=== PATIENT | female | born 1970 | race Caucasian/White ===

== ENCOUNTER 2019-02-11 05:28 | Emergency (ER) | payer OTHER, SELFPAY ==
[2019-02-11] MEDS ORDERED: METOCLOPRAMIDE 10 MG/2mL INJ ONE (06:01)
[2019-02-11] MEDS ORDERED: DIPHENHYDRAMINE 50 MG/ML VIAL ONE (06:02)
[2019-02-11] MEDS ORDERED: NA CHLORIDE 0.9% 1,000 ML ONE (06:02)
[2019-02-11] MEDS ORDERED: KETOROLAC 30 MG/ML INJ ONE (06:02)
[2019-02-11 06:08] LABS: Absolute Lymphocytes (CBC) 2.4 K/uL (0.7-4.9); Eosinophils % 2.6 % (0-4.4); Hematocrit 42.2 % (36.0-45.0); Lymphocytes % 25.8 % (15.3-44.8); Monocytes % 6.7 % (3.3-12.3); RBC Red Blood Cell Count 4.64 M/uL (3.86-4.86)
[2019-02-11] MEDS ORDERED: MAGNESIUM SULFATE 1 gm IVPB 1 GM/100 ML BAG IV ONE (06:17)
[2019-02-11 06:31] LABS: Albumin 4.5 g/dL (3.4-5.0); Bilirubin Total 0.3 mg/dL (0.2-1.0); Potassium 3.6 mmol/L (3.5-5.1)
--- NOTE | 2019-02-11 06:52 | EDPHYS ---
Physician Documentation [facility] Name: Tanna Phelps Age: 48 yrs Sex: Female : 1970 Arrival Date: 02/11/2019 Time: 05:29 Bed 5 Private MD: ED Physician Satish Jimenes HPI: 02/11 05:41 This 48 yrs old Female presents to ER via Unassigned with complaints of maldonado Headache. 05:41 The patient complains of pain to the top of head, forehead, left frontal area, left maldonado side of the back of head, left occipital area, left base of the skull, right frontal area, right side of the back of head, right occipital area and right base of the skull. The patient describes the headache as aching. Onset: The symptoms/episode began/occurred 14 day(s) ago. Associated signs and symptoms: The patient has no apparent associated signs or symptoms. Severity of symptoms: At its worst the pain was mild, moderate, in the emergency department the pain is unchanged. Headache History: The patient has had previous headaches and this one is similar to previous episodes. The symptoms are alleviated by nothing. the symptoms are aggravated by lights, movement, noise. The patient has experienced similar episodes in the past, multiple times. STRIKE PLANNING APPLICATIONS: 05:43 LMP N/A - Hysterectomy lp1 Historical: - Allergies: 05:46 Latex, Natural Rubber; lp1 05:46 Topamax; lp1 - Home Meds: 05:46 propranolol 40 mg Oral tab 1 tab 2 times per day [Active]; Hydrochlorothiazide Oral lp1 once daily [Active]; Butalbital Compound Oral [Active]; - PMHx: 05:46 Asthma; High Cholesterol; Hypertension; Migraines; lp1 - PSHx: 05:46 Kidney stents; ; Tubal ligation; Hysterectomy; Appendectomy; carpel tunnel; lp1 arterial graft; Knee surgery; - Immunization history:: Adult Immunizations up to date. - Social history:: Smoking status: Patient uses tobacco products, smokes one pack cigarettes per day. - Ebola Screening: : No symptoms or risks identified at this time. - Family history:: not pertinent. ROS: 05:41 Constitutional: Negative for fever, chills, and weight loss, Eyes: Negative for injury, maldonado pain, redness, and discharge, ENT: Negative for injury, pain, and discharge, Neck: Negative for injury, pain, and swelling, Cardiovascular: Negative for chest pain, palpitations, and edema, Respiratory: Negative for shortness of breath, cough, wheezing, and pleuritic chest pain, Abdomen/GI: Negative for abdominal pain, nausea, vomiting, diarrhea, and constipation, Back: Negative for injury and pain, : Negative for injury, bleeding, discharge, and swelling, MS/Extremity: Negative for injury and deformity, Skin: Negative for injury, rash, and discoloration, Psych: Negative for depression, anxiety, suicide ideation, homicidal ideation, and hallucinations, Allergy/Immunology: Negative for hives, rash, and allergies, Endocrine: Negative for neck swelling, polydipsia, polyuria, polyphagia, and marked weight changes, Hematologic/Lymphatic: Negative for swollen nodes, abnormal bleeding, and unusual bruising. 05:41 Neuro: Positive for headache. Exam: 05:41 Constitutional: This is a well developed, well nourished patient who is awake, alert, maldonado and in no acute distress. Head/Face: Normocephalic, atraumatic. Eyes: Pupils equal round and reactive to light, extra-ocular motions intact. Lids and lashes normal. Conjunctiva and sclera are non-icteric and not injected. Cornea within normal limits. Periorbital areas with no swelling, redness, or edema. ENT: Nares patent. No nasal discharge, no septal abnormalities noted. Tympanic membranes are normal and external auditory canals are clear. Oropharynx with no redness, swelling, or masses, exudates, or evidence of obstruction, uvula midline. Mucous membranes moist. Neck: Trachea midline, no thyromegaly or masses palpated, and no cervical lymphadenopathy. Supple, full range of motion without nuchal rigidity, or vertebral point tenderness. No Meningismus. Chest/axilla: Normal chest wall appearance and motion. Nontender with no deformity. No lesions are appreciated. Cardiovascular: Regular rate and rhythm with a normal S1 and S2. No gallops, murmurs, or rubs. Normal PMI, no JVD. No pulse deficits. Respiratory: Lungs have equal breath sounds bilaterally, clear to auscultation and percussion. No rales, rhonchi or wheezes noted. No increased work of breathing, no retractions or nasal flaring. Abdomen/GI: Soft, non-tender, with normal bowel sounds. No distension or tympany. No guarding or rebound. No evidence of tenderness throughout. Back: No spinal tenderness. No costovertebral tenderness. Full range of motion. Skin: Warm, dry with normal turgor. Normal color with no rashes, no lesions, and no evidence of cellulitis. MS/ Extremity: Pulses equal, no cyanosis. Neurovascular intact. Full, normal range of motion. Neuro: Awake and alert, GCS 15, oriented to person, place, time, and situation. Cranial nerves II-XII grossly intact. Motor strength 5/5 in all extremities. Sensory grossly intact. Cerebellar exam normal. Normal gait. Psych: Awake, alert, with orientation to person, place and time. Behavior, mood, and affect are within normal limits. 05:41 Neck: ROM/movement: is normal, no acute changes, Meningeal signs: are not present, Kernig's sign is negative, Brudzinski's sign is negative. Vital Signs: 05:43 BP 187 / 100; Pulse 84; Resp 18; Temp 97.9(O); Pulse Ox 97% on R/A; Weight 77.11 kg; lp1 Height 5 ft. 1 in. (154.94 cm); Pain 6/10; 06:17 BP 178 / 87; Pulse 83; Resp 17 S; Pulse Ox 97% on R/A; jd3 06:30 BP 173 / 95; Pulse 71; Resp 16 S; Pulse Ox 95% on R/A; Pain 3/10; jd3 05:43 Body Mass Index 32.12 (77.11 kg, 154.94 cm) lp1 MDM: 05:32 Patient medically screened. [facility] 05:49 Data reviewed: vital signs, nurses notes, lab test result(s), radiologic studies, CT maldonado scan. 02/11 05:39 Order name: CBC with Diff; Complete Time: 06:48 [facility] 02/11 05:39 Order name: Comprehensive Metabolic Panel; Complete Time: 06:48 [facility] 02/11 05:39 Order name: Urine Culture [facility] 02/11 05:40 Order name: CT Head Brain wo Cont [facility] 02/11 07:23 Order name: Urine Dipstick--Ancillary (enter results) 02/11 05:39 Order name: Urine Dipstick-Ancillary (obtain specimen); Complete Time: 07:20 [facility] 02/11 05:39 Order name: Oxygen; Complete Time: 06:10 [facility] 02/11 06:11 Order name: IV; Complete Time: 06:11 jd3 Administered Medications: 06:11 Drug: NS 0.9% 1000 ml Route: IV; Rate: 1 bolus; Site: right antecubital; jd3 07:22 Follow up: Response: No adverse reaction; IV Status: Completed infusion; IV Intake: jd3 1000ml 06:11 Drug: TORadol 30 mg Route: IVP; Site: right antecubital; jd3 07:10 Follow up: Response: No adverse reaction jd3 06:11 Drug: Benadryl 50 mg Route: IVP; Site: right antecubital; jd3 07:10 Follow up: Response: No adverse reaction jd3 06:12 Drug: Reglan 10 mg Route: IVP; Site: right antecubital; jd3 07:05 Follow up: Response: No adverse reaction jd3 06:12 Drug: Magnesium Sulfate 1 grams Route: IVPB; Infused Over: 1 hrs; Site: right jd3 antecubital; 07:21 Follow up: Response: No adverse reaction; IV Status: Completed infusion; IV Intake: jd3 100ml 07:18 Drug: Zofran 4 mg Route: IVP; Site: right antecubital; jd3 07:21 Follow up: Response: Medication administered at discharge. jd3 07:18 Drug: morphine 4 mg Route: IVP; Site: right antecubital; jd3 07:21 Follow up: Response: Medication administered at discharge. jd3 Disposition: 02/11/19 06:51 Discharged to Home. Impression: Headache, Migraine. - Condition is Stable. - Discharge Instructions: General Headache Without Cause, Migraine Headache, Migraine Headache, [id number], General Headache Without Cause, Gqjp-ly-[id number]. - Prescriptions for Fioricet with Codeine 50- 325-40-30 mg Oral capsule - take 1 capsule by ORAL route every 4 hours as needed not to exceed 6 capsules per 24hrs; 26 capsule. Zofran 4 mg Oral Tablet - take 1 tablet by ORAL route every 12 hours As needed; 20 tablet. - Medication Reconciliation Form, Thank You Letter, Antibiotic Education, Prescription Opioid Use form. - Follow up: Private Physician; When: 2 - 3 days; Reason: Recheck today's complaints, Continuance of care, Re-evaluation by your physician. Follow up: Caleb Velarde; When: 2 - 3 days; Reason: Recheck today's complaints, Re-evaluation by your physician. - Problem is new. - Symptoms have improved. Signatures: Dispatcher [employer] EDSatish Vera MD MD cha Pena, Laura RN RN lp1 Denilson Shearer RN RN jd3 Corrections: (The following items were deleted from the chart) 07:24 06:51 02/11/2019 06:51 Discharged to Home. Impression: Headache; Migraine. Condition is jd3 Stable. Discharge Instructions: General Headache Without Cause, Migraine Headache, Migraine Headache, [id number]-[id number], General Headache Without Cause, Vbwp-[id number]-Hwag. Prescriptions for Fioricet with Codeine 57-509-64-30 mg Oral capsule - take 1 capsule by ORAL route every 4 hours as needed not to exceed 6 capsules per 24hrs; 26 capsule, Zofran 4 mg Oral Tablet - take 1 tablet by ORAL route every 12 hours As needed; 20 tablet. and Forms are Medication Reconciliation Form, Thank You Letter, Antibiotic Education, Prescription Opioid Use. Follow up: Private Physician; When: 2 - 3 days; Reason: Recheck today's complaints, Continuance of care, Re-evaluation by your physician. Follow up: Caleb Velarde; When: 2 - 3 days; Reason: Recheck today's complaints, Re-evaluation by your physician. Problem is new. Symptoms have improved. maldonado
--- NOTE | 2019-02-11 06:52 | ER ---
Nurse's Notes [facility] Name: Tanna Phelps Age: 48 yrs Sex: Female : 1970 Arrival Date: 02/11/2019 Time: 05:29 Bed 5 Private MD: Diagnosis: Headache;Migraine Presentation: 02/11 05:42 Presenting complaint: Patient states: "I've had a headache for 3 weeks that I cannot lp1 get rid of"; Patient states waking up this morning vomiting; noise and light sensitivity; Hx of migraines, complaint of pain to back of head radiating to forehead. Transition of care: patient was not received from another setting of care. Onset of symptoms was February 11, 2019. Risk Assessment: Do you want to hurt yourself or someone else? Patient reports no desire to harm self or others. Initial Sepsis Screen: Does the patient meet any 2 criteria? No. Patient's initial sepsis screen is negative. Does the patient have a suspected source of infection? No. Patient's initial sepsis screen is negative. Care prior to arrival: None. 05:42 Method Of Arrival: Ambulatory lp1 05:42 Acuity: JOE 3 lp1 Triage Assessment: 06:15 Pain: Pain at worst was 10 out of 10 on a pain scale. Pain began 2-3 days ago. Also jd3 complains of nausea. 06:16 Headache History: The patient has had previous headaches and this one is similar to jd3 previous episodes. 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 - Social history:: Smoking status: Patient uses tobacco products, smokes one pack cigarettes per day. - Ebola Screening: : No symptoms or risks identified at this time. - Family history:: not pertinent. Screenin:46 Abuse screen: Denies threats or abuse. Denies injuries from another. Nutritional lp1 screening: No deficits noted. Tuberculosis screening: No symptoms or risk factors identified. Fall Risk None identified. Assessment: 05:50 General: Appears in no apparent distress. uncomfortable, Behavior is calm, cooperative, jd3 appropriate for age. Pain: Complains of pain in head Quality of pain is described as aching, Aggravated by increased activity. Neuro: Level of Consciousness is awake, alert, obeys commands, Oriented to person, place, time, situation, Appropriate for age Moves all extremities. Full function Gait is steady, Speech is normal, Pupils are PERRLA, Reports headache photophobia Denies dizziness, numbness diplopia. Cardiovascular: Capillary refill < 3 seconds Patient's skin is warm and dry. Respiratory: Airway is patent Respiratory effort is even, unlabored, Respiratory pattern is regular, symmetrical. GI: Abdomen is round non-distended, Abd is soft and non tender X 4 quads. Reports nausea, Patient currently denies constipation, diarrhea, vomiting. : No signs and/or symptoms were reported regarding the genitourinary system. EENT: No signs and/or symptoms were reported regarding the EENT system. Derm: Skin is intact, Skin is dry, Skin is normal, Skin temperature is warm. Musculoskeletal: Circulation, motion, and sensation intact. Range of motion: intact in all extremities. 06:16 Reassessment: Patient appears in no apparent distress at this time. No changes from jd3 previously documented assessment. Patient and/or family updated on plan of care and expected duration. Pain level reassessed. Patient is alert, oriented x 3, equal unlabored respirations, skin warm/dry/pink. 06:40 Reassessment: Patient appears in no apparent distress at this time. Patient and/or jd3 family updated on plan of care and expected duration. Pain level reassessed. Patient is alert, oriented x 3, equal unlabored respirations, skin warm/dry/pink. pt resting in bed with eyes closed. even and unlabored respirations. Patient states feeling better. 07:23 Reassessment: Patient appears in no apparent distress at this time. Patient and/or jd3 family updated on plan of care and expected duration. Pain level reassessed. Patient is alert, oriented x 3, equal unlabored respirations, skin warm/dry/pink. reported understanding of discharge instructions. even and steady gait to ER lobby to wait for ride. Patient states feeling better. Vital Signs: 05:43 BP 187 / 100; Pulse 84; Resp 18; Temp 97.9(O); Pulse Ox 97% on R/A; Weight 77.11 kg; lp1 Height 5 ft. 1 in. (154.94 cm); Pain 6/10; 06:17 BP 178 / 87; Pulse 83; Resp 17 S; Pulse Ox 97% on R/A; jd3 06:30 BP 173 / 95; Pulse 71; Resp 16 S; Pulse Ox 95% on R/A; Pain 3/10; jd3 05:43 Body Mass Index 32.12 (77.11 kg, 154.94 cm) lp1 ED Course: 05:29 Patient arrived in ED. ds1 05:32 Satish Jimenes MD is Attending Physician. maldonado 05:41 Denilson Shearer RN is Primary Nurse. jd3 05:43 Triage completed. lp1 05:43 Arm band placed on. lp1 05:[address] via wheelchair. lp1 05:46 Patient has correct armband on for positive identification. Placed in gown. lp1 05:58 Inserted saline lock: 20 gauge in right antecubital area, using aseptic technique. jd3 Blood collected. 06:03 CT Head Brain wo Cont In Process Unspecified. EDMS 06:51 Caleb Velarde MD is Referral Physician. maldonado 07:22 No provider procedures requiring assistance completed. IV discontinued, intact, jd3 bleeding controlled, No redness/swelling at site. Pressure dressing applied. Administered Medications: 06:11 Drug: NS 0.9% 1000 ml Route: IV; Rate: 1 bolus; Site: right antecubital; jd3 07:22 Follow up: Response: No adverse reaction; IV Status: Completed infusion; IV Intake: jd3 1000ml 06:11 Drug: TORadol 30 mg Route: IVP; Site: right antecubital; jd3 07:10 Follow up: Response: No adverse reaction jd3 06:11 Drug: Benadryl 50 mg Route: IVP; Site: right antecubital; jd3 07:10 Follow up: Response: No adverse reaction jd3 06:12 Drug: Reglan 10 mg Route: IVP; Site: right antecubital; jd3 07:05 Follow up: Response: No adverse reaction jd3 06:12 Drug: Magnesium Sulfate 1 grams Route: IVPB; Infused Over: 1 hrs; Site: right jd3 antecubital; 07:21 Follow up: Response: No adverse reaction; IV Status: Completed infusion; IV Intake: jd3 100ml 07:18 Drug: Zofran 4 mg Route: IVP; Site: right antecubital; jd3 07:21 Follow up: Response: Medication administered at discharge. jd3 07:18 Drug: morphine 4 mg Route: IVP; Site: right antecubital; jd3 07:21 Follow up: Response: Medication administered at discharge. jd3 Intake: 07:21 IV: 100ml; Total: 100ml. jd3 07:22 IV: 1000ml; Total: 1100ml. jd3 Outcome: 06:51 Discharge ordered by MD. okeefe 07:23 Discharged to home ambulatory, with family. jd3 07:23 Condition: stable 07:23 Discharge instructions given to patient, Instructed on discharge instructions, follow up and referral plans. medication usage, Demonstrated understanding of instructions, follow-up care, medications, Prescriptions given X 2. 07:24 Patient left the ED. jd3 Signatures: Dispatcher [employer] Satish Hinkle MD MD cha Sanford, Demi ds1 Vickie Gaines RN RN lp1 Denilson Shearer RN RN jd3
[2019-02-11] MEDS ORDERED: MORPHINE 4 MG/ML SYR ONE (07:27)
[2019-02-11] MEDS ORDERED: ONDANSETRON 4 MG/2 ML VIAL ONE (07:27)
[2019-02-11 09:25] LABS: Urine Blood NEGATIVE (NEG); Urine Glucose NEGATIVE (NEG); Urine Protein NEGATIVE (NEG); Urine Specific Gravity 1.025 (1.005-1.030)
--- NOTE | 2019-02-11 10:02 | RAD REPORT ---
EXAM DESCRIPTION: CT - Head Brain Wo Cont - 02/11/2019 6:20 am CLINICAL HISTORY: PAIN COMPARISON: None available TECHNIQUE: Axial CT of the head obtained from the skull apex to the skull base without contrast. FINDINGS: No acute intracranial hemorrhage identified. No mass, mass effect, shift of the midline, a bnormal extra-axial fluid collection or CT evidence of acute ischemic change identified. The ventricu lar system is unremarkable. No acute abnormalities of the supratentorial white matter, basal gangli a, cerebellum, or brainstem. The visualized paranasal sinuses and the mastoids are clear. No skull fracture identified. Visualized orbits and globes are unremarkable. DLP: 27.6 mGy-cm IMPRESSION: 1. No acute intracranial abnormality identified. This exam was performed according to our departmental dose-optimization program, which includes autom ated exposure control, adjustment of the mA and/or kV according to patient size and/or use of iterati ve reconstruction technique. Electronically signed by: Yuriy Barcenas 02/11/2019 6:14 AM CDT Due to temporary technical issues with the PACS/Fluency reporting system, reports are being signed by the in house radiologist as a courtesy to ensure prompt reporting. The interpreting radiologist is f ully responsible for the content of the report.
== END 2019-02-11 07:24 | disposition home or self-care (01) ==
LOC: ER 05:28
DX: G43.909 Migraine, unspecified, not intractable, without status migrainosus (principal); J45.909 Unspecified asthma, uncomplicated; E78.00 Pure hypercholesterolemia, unspecified; I10 Essential (primary) hypertension; F17.210 Nicotine dependence, cigarettes, uncomplicated; Z91.040 Latex allergy status
CPT/HCPCS: 36415; 70450; 80053; 81003; 85025; 87086; 87088; 96365; 96375; 99284; J2405; J2765; J3475; J7030

== ENCOUNTER 2019-02-18 19:11 | Emergency (ER) | payer BC, SELFPAY ==
[2019-02-18 20:26] LABS: Absolute Lymphocytes (CBC) 1.3 K/uL (0.7-4.9); Basophils % 0.6 % (0-1.3); Eosinophils % 0.6 % (0-4.4); Hematocrit 42.1 % (36.0-45.0); Lymphocytes % 9.9 % (15.3-44.8); MPV 8.6 fL (7.6-11.3); Monocytes % 5.1 % (3.3-12.3); RBC Red Blood Cell Count 4.59 M/uL (3.86-4.86)
[2019-02-18 20:33] LABS: Protime INR 0.95
[2019-02-18] MEDS ORDERED: ONDANSETRON 4 MG/2 ML VIAL ONE ×2 (20:35→21:44)
[2019-02-18] MEDS ORDERED: MORPHINE 4 MG/ML SYR ONE ×2 (20:35→21:44)
[2019-02-18] MEDS ORDERED: NA CHLORIDE 0.9% 1,000 ML ONE (20:35)
[2019-02-18] MEDS ORDERED: FAMOTIDINE 20 MG/2 ML VIAL IV ONE (20:35)
[2019-02-18 20:46] LABS: ALT/SGPT 20 U/L (12-78); AST/SGOT 14 U/L (15-37); Albumin 4.5 g/dL (3.4-5.0); Alkaline Phosphatase 123 U/L (45-117); BUN Blood Urea Nitrogen 16 mg/dL (7-18); Bicarbonate 27 mmol/L (21-32); Bilirubin Direct < 0.1 mg/dL (0-0.2); Bilirubin Total 0.3 mg/dL (0.2-1.0); Glucose Level 126 mg/dL (74-106); Lipase 112 U/L (73-393); Magnesium 2.2 mg/dL (1.8-2.4); NT PRO-BNP 59 pg/mL (<125); Potassium 3.6 mmol/L (3.5-5.1); Protein, Total 8.1 g/dL (6.4-8.2); Sodium Level 141 mmol/L (136-145); Troponin (Emerg Dept Use Only) 0.21 ng/mL (0.0-0.045)
[2019-02-18 20:59] LABS: Urine Blood TRACE (NEG); Urine Glucose NEGATIVE (NEG); Urine Protein 1+ (NEG); Urine Specific Gravity 1.025 (1.005-1.030)
[2019-02-18] MEDS ORDERED: KETOROLAC 30 MG/ML INJ ONE (21:27)
--- NOTE | 2019-02-18 21:51 | EDPHYS ---
Physician Documentation [facility] Name: Tanna Phelps Age: 48 yrs Sex: Female : 1970 Arrival Date: 02/18/2019 Time: 19:13 Bed 8 Private MD: TWAN Physician Satish Jimenes HPI: 02/18 20:05 This 48 yrs old Female presents to ER via Ambulatory with complaints of maldonado Abdominal Pain. 20:05 The patient presents with abdominal pain in the upper abdomen, in the left upper maldonado quadrant. Onset: The symptoms/episode began/occurred 2 day(s) ago. The symptoms do not radiate. Associated signs and symptoms: none. The symptoms are described as constant. Modifying factors: The symptoms are alleviated by nothing, the symptoms are aggravated by nothing. Severity of pain: At its worst the pain was moderate. The patient has not experienced similar symptoms in the past. 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 - Social history:: Smoking status: Patient uses tobacco products, smokes one pack cigarettes per day. - Ebola Screening: : Patient denies exposure to infectious person Patient denies travel to an Ebola-affected area in the 21 days before illness onset. - Family history:: not pertinent. ROS: 20:05 Constitutional: Negative for fever, chills, and weight loss, Eyes: Negative for injury, maldonado pain, redness, and discharge, ENT: Negative for injury, pain, and discharge, Neck: Negative for injury, pain, and swelling, Cardiovascular: Negative for chest pain, palpitations, and edema, Respiratory: Negative for shortness of breath, cough, wheezing, and pleuritic chest pain, Back: Negative for injury and pain, : Negative for injury, bleeding, discharge, and swelling, MS/Extremity: Negative for injury and deformity, Skin: Negative for injury, rash, and discoloration, Neuro: Negative for headache, weakness, numbness, tingling, and seizure, Psych: Negative for depression, anxiety, suicide ideation, homicidal ideation, and hallucinations, Allergy/Immunology: Negative for hives, rash, and allergies, Endocrine: Negative for neck swelling, polydipsia, polyuria, polyphagia, and marked weight changes, Hematologic/Lymphatic: Negative for swollen nodes, abnormal bleeding, and unusual bruising. 20:05 Abdomen/GI: Positive for abdominal pain, of the left upper quadrant. Exam: 20:05 Constitutional: This is a well developed, well nourished patient who is awake, alert, mladonado and in no acute distress. Head/Face: Normocephalic, atraumatic. Eyes: Pupils equal round and reactive to light, extra-ocular motions intact. Lids and lashes normal. Conjunctiva and sclera are non-icteric and not injected. Cornea within normal limits. Periorbital areas with no swelling, redness, or edema. ENT: Nares patent. No nasal discharge, no septal abnormalities noted. Tympanic membranes are normal and external auditory canals are clear. Oropharynx with no redness, swelling, or masses, exudates, or evidence of obstruction, uvula midline. Mucous membranes moist. Neck: Trachea midline, no thyromegaly or masses palpated, and no cervical lymphadenopathy. Supple, full range of motion without nuchal rigidity, or vertebral point tenderness. No Meningismus. Chest/axilla: Normal chest wall appearance and motion. Nontender with no deformity. No lesions are appreciated. Cardiovascular: Regular rate and rhythm with a normal S1 and S2. No gallops, murmurs, or rubs. Normal PMI, no JVD. No pulse deficits. Respiratory: Lungs have equal breath sounds bilaterally, clear to auscultation and percussion. No rales, rhonchi or wheezes noted. No increased work of breathing, no retractions or nasal flaring. Back: No spinal tenderness. No costovertebral tenderness. Full range of motion. Skin: Warm, dry with normal turgor. Normal color with no rashes, no lesions, and no evidence of cellulitis. MS/ Extremity: Pulses equal, no cyanosis. Neurovascular intact. Full, normal range of motion. Neuro: Awake and alert, GCS 15, oriented to person, place, time, and situation. Cranial nerves II-XII grossly intact. Motor strength 5/5 in all extremities. Sensory grossly intact. Cerebellar exam normal. Normal gait. Psych: Awake, alert, with orientation to person, place and time. Behavior, mood, and affect are within normal limits. 20:05 Abdomen/GI: Inspection: abdomen appears normal, Bowel sounds: normal, Palpation: moderate abdominal tenderness, in the left upper quadrant, Liver: no appreciated palpable abnormalities, Hernia: not appreciated. Vital Signs: 19:22 BP 195 / 93; Pulse 79; Resp 18; Temp 97.5; Pulse Ox 100% on R/A; Weight 77.11 kg; aa1 Height 5 ft. 1 in. (154.94 cm); Pain 9/10; 20:26 BP 165 / 91; Pulse 84; Resp 18; Pulse Ox 100% on R/A; tl2 21:34 BP 170 / 84; Pulse 84; Resp 17; Pulse Ox 97% on R/A; Pain 8/10; tl1 22:22 BP 139 / 71; Pulse 78; Resp 17; Pulse Ox 97% ; Pain 5/10; tl1 22:46 BP 140 / 72; Pulse 70; Resp 17; Pulse Ox 99% on R/A; Pain 3/10; tl1 23:35 BP 120 / 80; Pulse 67; Resp 17; Temp 97.6; Pulse Ox 98% ; Pain 5/10; tl1 19:22 Body Mass Index 32.12 (77.11 kg, 154.94 cm) aa1 [place] Coma Score: 19:30 Eye Response: spontaneous(4). Verbal Response: oriented(5). Motor Response: obeys tl1 commands(6). Total: 15. 23:10 Eye Response: spontaneous(4). Verbal Response: oriented(5). Motor Response: obeys tl1 commands(6). Total: 15. MDM: 19:29 Patient medically screened. [facility] 20:07 Data reviewed: vital signs, nurses notes, lab test result(s), EKG, radiologic studies, [facility] CT scan, plain films. 02/18 20:04 Order name: Basic Metabolic Panel; Complete Time: 21:12 [facility] 02/18 20:04 Order name: CBC with Diff; Complete Time: 21:12 [facility] 02/18 20:04 Order name: LFT's; Complete Time: 21:12 [facility] 02/18 20:04 Order name: Magnesium; Complete Time: 21:12 [facility] 02/18 20:04 Order name: NT PRO-BNP; Complete Time: 21:12 [facility] 02/18 20:04 Order name: PT-INR; Complete Time: 21:12 [facility] 02/18 20:04 Order name: Troponin (emerg Dept Use Only); Complete Time: 21:12 [facility] 02/18 20:04 Order name: XRAY Chest (1 view) [facility] 02/18 20:04 Order name: Lipase; Complete Time: 21:12 [facility] 02/18 20:04 Order name: Urine Culture [facility] 02/18 20:04 Order name: CT Abd/Pelvis - PO and IV Contrast [facility] 02/18 20:29 Order name: Urine Dipstick--Ancillary (enter results); Complete Time: 21:12 [facility] 02/18 21:13 Order name: CT Head Brain wo Cont [facility] 02/18 20:04 Order name: EKG; Complete Time: 20:07 [facility] 02/18 20:04 Order name: Cardiac monitoring; Complete Time: 20:08 [facility] 02/18 20:04 Order name: EKG - Nurse/Tech; Complete Time: 20:51 [facility] 02/18 20:04 Order name: IV Saline Lock; Complete Time: 20:08 [facility] 02/18 20:04 Order name: Labs collected and sent; Complete Time: 20:08 [facility] 02/18 20:04 Order name: O2 Per Protocol; Complete Time: 20:08 [facility] 02/18 20:04 Order name: O2 Sat Monitoring; Complete Time: 20:08 [facility] 02/18 20:04 Order name: Urine Dipstick-Ancillary (obtain specimen); Complete Time: 20:09 [facility] Administered Medications: 20:28 Drug: NS 0.9% 1000 ml Route: IV; Rate: 1 bolus; Site: right antecubital; tl1 22:00 Follow up: IV Status: Completed infusion; IV Intake: 1000ml tl1 20:29 Drug: morphine 4 mg Route: IVP; Infused Over: 2 mins; Site: right antecubital; tl1 20:30 Follow up: Response: No adverse reaction; Pain is unchanged, physician notified tl1 20:29 Drug: Zofran 4 mg Route: IVP; Infused Over: 2 mins; Site: right antecubital; tl1 22:52 Follow up: Response: No adverse reaction; No change in condition tl1 20:29 Drug: Pepcid 20 mg Route: IVP; Infused Over: 2 mins; Site: right antecubital; tl1 21:00 Follow up: Response: No adverse reaction; No change in condition tl1 21:18 Drug: TORadol 30 mg Route: IVP; Infused Over: 2 mins; Site: right antecubital; tl1 22:51 Follow up: Response: No adverse reaction; Marked relief of symptoms; Pain is decreased tl1 21:32 Drug: morphine 4 mg Route: IVP; Infused Over: 2 mins; Site: right antecubital; tl1 22:00 Follow up: Response: No adverse reaction; Pain is unchanged, physician notified tl1 21:33 Drug: Zofran 4 mg Route: IVP; Infused Over: 2 mins; Site: right antecubital; tl1 22:51 Follow up: Response: No adverse reaction; Nausea is decreased tl1 21:54 Drug: Aspirin Chewable Tablet 324 mg Route: PO; tl1 22:51 Follow up: Response: No adverse reaction; No change in condition tl1 21:54 Drug: Lovenox 80 mg Route: Sub-Q; Site: abdomen; tl1 22:50 Follow up: Response: No adverse reaction; No change in condition tl1 21:54 Drug: Lopressor 25 mg Route: PO; tl1 22:50 Follow up: Response: No adverse reaction; Marked relief of symptoms; Blood pressure is tl1 lowered 21:56 Not Given (Duplicate Order): PlaVIX 600 mg PO once; if ct head , abd and pelvis is neg maldonado 22:21 Drug: Enalaprilat 1.25 mg Route: IV; Rate: per protocol; Infused Over: 5 mins; Site: tl1 right antecubital; 22:40 Follow up: IV Status: Completed infusion tl1 22:21 Drug: niMODipine 60 mg Route: PO; tl1 22:51 Follow up: Response: No adverse reaction; No change in condition tl1 22:22 Drug: Keppra 1000 mg Route: IV; Rate: per protocol; Site: right antecubital; tl1 22:40 Follow up: IV Status: Completed infusion; IV Intake: 100ml tl1 Disposition: 02/18/19 23:[address] [facility]. Diagnosis are Nontraumatic subarachnoid hemorrhage, unspecified, Abdominal tenderness, Chest pain, unspecified, Non-ST elevation (NSTEMI) myocardial infarction, Essential (primary) hypertension. - Reason for transfer: Higher level of care. - Accepting physician is to [facility] via life flight. - Condition is Fair. - Problem is new. - Symptoms are unchanged. Signatures: Dispatcher [employer] EDMelissa Goodwin RN RN aa1 Satish Jimenes MD MD cha Lasagna, Tonya, RN RN tl1 Corrections: (The following items were deleted from the chart) 23:08 21:50 Hospitalization Ordered by Cheryl Hopper MD for Inpatient Admission. Preliminary maldonado diagnosis is Abdominal tenderness; Other chest pain; Non-ST elevation (NSTEMI) myocardial infarction; Essential (primary) hypertension. Bed requested for Telemetry/MedSurg (Inpatient). Status is Inpatient Admission. Condition is Stable. Problem is new. Symptoms have improved. UTI on Admission? No. maldonado 23:40 23:12 02/18/2019 23:[address] [facility]. Diagnosis is tl1 Nontraumatic subarachnoid hemorrhage, unspecified; Abdominal tenderness; Chest pain, unspecified; Non-ST elevation (NSTEMI) myocardial infarction; Essential (primary) hypertension. Reason for transfer: Higher level of care. Accepting physician is to [facility] via life flight. Condition is Fair. Problem is new. Symptoms are unchanged. maldonado
--- NOTE | 2019-02-18 21:51 | ER ---
[facility] Name: Tanna Phelps Age: 48 yrs Sex: Female : 1970 Arrival Date: 02/18/2019 Time: 19:13 Bed 8 Private MD: Diagnosis: Nontraumatic subarachnoid hemorrhage, unspecified;Abdominal tenderness;Chest pain, unspecified;Non-ST elevation (NSTEMI) myocardial infarction;Essential (primary) hypertension Presentation: 02/18 19:20 Presenting complaint: Patient states: LUQ pain, N/V, and migraine since 0 this aa1 afternoon. Reports last time she had this pain she was told she has Crohn's. Transition of care: patient was not received from another setting of care. Onset of symptoms was February 18, 2019 at 16:30. Risk Assessment: Do you want to hurt yourself or someone else? Patient reports no desire to harm self or others. Initial Sepsis Screen: Does the patient meet any 2 criteria? No. Patient's initial sepsis screen is negative. Does the patient have a suspected source of infection? Yes: Acute abdominal pain. Care prior to arrival: None. 19:20 Method Of Arrival: Ambulatory aa1 19:20 Acuity: JOE 3 aa1 Triage Assessment: 19:22 General: Appears in no apparent distress. uncomfortable, Behavior is calm, cooperative, aa1 appropriate for age. 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 - Social history:: Smoking status: Patient uses tobacco products, smokes one pack cigarettes per day. - Ebola Screening: : Patient denies exposure to infectious person Patient denies travel to an Ebola-affected area in the 21 days before illness onset. - Family history:: not pertinent. Screenin:10 Abuse screen: Denies threats or abuse. Denies injuries from another. Nutritional tl1 screening: No deficits noted. Tuberculosis screening: No symptoms or risk factors identified. Fall Risk IV access (20 points). Assessment: 19:30 General: Appears uncomfortable, Behavior is calm, cooperative, appropriate for age. tl1 Pain: Complains of pain in forehead and left upper quadrant Pain currently is 9 out of 10 on a pain scale. Quality of pain is described as aching, pressure, Pain began 4 hours ago. Is continuous. Neuro: Level of Consciousness is awake, alert, obeys commands, Oriented to person, place, time, situation, Eyedotter are equal bilaterally Moves all extremities. Gait is steady, Speech is normal, Facial symmetry appears normal. Neuro: Reports headache frontal area. Cardiovascular: Denies chest pain. Respiratory: Airway is patent Trachea midline Respiratory effort is even, unlabored, Breath sounds are clear bilaterally. GI: Abdomen is non-distended, Bowel sounds present X 4 quads. Abd is soft and non tender X 4 quads. Reports upper abdominal pain. : No signs and/or symptoms were reported regarding the genitourinary system. EENT: No signs and/or symptoms were reported regarding the EENT system. Derm: No signs and/or symptoms reported regarding the dermatologic system. 23:11 Reassessment: Patient and/or family updated on plan of care and expected duration. Pain tl1 level reassessed. Patient is alert, oriented x 3, equal unlabored respirations, skin warm/dry/pink. Patient states feeling better. Patient states symptoms have improved. Neuro: Level of Consciousness is awake, alert, obeys commands, Oriented to person, place, time, situation, Eyedotter are equal bilaterally Moves all extremities. Gait is steady, Speech is normal, Pupils are PERRLA. Vital Signs: 19:22 BP 195 / 93; Pulse 79; Resp 18; Temp 97.5; Pulse Ox 100% on R/A; Weight 77.11 kg; aa1 Height 5 ft. 1 in. (154.94 cm); Pain 9/10; 20:26 BP 165 / 91; Pulse 84; Resp 18; Pulse Ox 100% on R/A; tl2 21:34 BP 170 / 84; Pulse 84; Resp 17; Pulse Ox 97% on R/A; Pain 8/10; tl1 22:22 BP 139 / 71; Pulse 78; Resp 17; Pulse Ox 97% ; Pain 5/10; tl1 22:46 BP 140 / 72; Pulse 70; Resp 17; Pulse Ox 99% on R/A; Pain 3/10; tl1 23:35 BP 120 / 80; Pulse 67; Resp 17; Temp 97.6; Pulse Ox 98% ; Pain 5/10; tl1 19:22 Body Mass Index 32.12 (77.11 kg, 154.94 cm) aa1 [place] Coma Score: 19:30 Eye Response: spontaneous(4). Verbal Response: oriented(5). Motor Response: obeys tl1 commands(6). Total: 15. 23:10 Eye Response: spontaneous(4). Verbal Response: oriented(5). Motor Response: obeys tl1 commands(6). Total: 15. ED Course: 19:13 Patient arrived in ED. am2 19:21 Triage completed. aa1 19:22 Arm band placed on left wrist. Patient placed in an exam room, on a stretcher. aa1 19:22 Patient has correct armband on for positive identification. Placed in gown. Bed in low tl1 position. Call light in reach. Side rails up X 1. monitor worker on. Pulse ox on. NIBP on. Warm blanket given. 19:29 Satish Jimenes MD is Attending Physician. [facility] 19:46 Inserted saline lock: 20 gauge in right antecubital area, using aseptic technique. jb5 Blood collected. 20:20 Urine Culture Sent. jb5 20:20 Basic Metabolic Panel Sent. jb5 20:20 CBC with Diff Sent. jb5 20:20 LFT's Sent. jb5 20:20 Magnesium Sent. jb5 20:20 NT PRO-BNP Sent. jb5 20:20 PT-INR Sent. jb5 20:20 Troponin (emerg Dept Use Only) Sent. jb5 20:28 Miesha Chicas, DESTINI is Primary Nurse. tl1 21:39 XRAY Chest (1 view) In Process Unspecified. EDMS 21:42 CT completed. Patient tolerated procedure well. Patient moved to CT. Patient moved back ne from CT. 21:46 CT Head Brain wo Cont In Process Unspecified. EDMS 21:47 Cheryl Hopper MD is Hospitalizing Provider. maldonado 21:52 CT Abd/Pelvis - PO and IV Contrast In Process Unspecified. EDMS 23:37 No provider procedures requiring assistance completed. Patient transferred, IV remains tl1 in place. Administered Medications: 20:28 Drug: NS 0.9% 1000 ml Route: IV; Rate: 1 bolus; Site: right antecubital; tl1 22:00 Follow up: IV Status: Completed infusion; IV Intake: 1000ml tl1 20:29 Drug: morphine 4 mg Route: IVP; Infused Over: 2 mins; Site: right antecubital; tl1 20:30 Follow up: Response: No adverse reaction; Pain is unchanged, physician notified tl1 20:29 Drug: Zofran 4 mg Route: IVP; Infused Over: 2 mins; Site: right antecubital; tl1 22:52 Follow up: Response: No adverse reaction; No change in condition tl1 20:29 Drug: Pepcid 20 mg Route: IVP; Infused Over: 2 mins; Site: right antecubital; tl1 21:00 Follow up: Response: No adverse reaction; No change in condition tl1 21:18 Drug: TORadol 30 mg Route: IVP; Infused Over: 2 mins; Site: right antecubital; tl1 22:51 Follow up: Response: No adverse reaction; Marked relief of symptoms; Pain is decreased tl1 21:32 Drug: morphine 4 mg Route: IVP; Infused Over: 2 mins; Site: right antecubital; tl1 22:00 Follow up: Response: No adverse reaction; Pain is unchanged, physician notified tl1 21:33 Drug: Zofran 4 mg Route: IVP; Infused Over: 2 mins; Site: right antecubital; tl1 22:51 Follow up: Response: No adverse reaction; Nausea is decreased tl1 21:54 Drug: Aspirin Chewable Tablet 324 mg Route: PO; tl1 22:51 Follow up: Response: No adverse reaction; No change in condition tl1 21:54 Drug: Lovenox 80 mg Route: Sub-Q; Site: abdomen; tl1 22:50 Follow up: Response: No adverse reaction; No change in condition tl1 21:54 Drug: Lopressor 25 mg Route: PO; tl1 22:50 Follow up: Response: No adverse reaction; Marked relief of symptoms; Blood pressure is tl1 lowered 21:56 Not Given (Duplicate Order): PlaVIX 600 mg PO once; if ct head , abd and pelvis is neg [facility] 22:21 Drug: Enalaprilat 1.25 mg Route: IV; Rate: per protocol; Infused Over: 5 mins; Site: tl1 right antecubital; 22:40 Follow up: IV Status: Completed infusion tl1 22:21 Drug: niMODipine 60 mg Route: PO; tl1 22:51 Follow up: Response: No adverse reaction; No change in condition tl1 22:22 Drug: Keppra 1000 mg Route: IV; Rate: per protocol; Site: right antecubital; tl1 22:40 Follow up: IV Status: Completed infusion; IV Intake: 100ml tl1 Intake: 22:00 IV: 1000ml; Total: 1000ml. tl1 22:40 IV: 100ml; Total: 1100ml. tl1 Outcome: 21:50 Decision to Hospitalize by Provider. maldonado 23:12 ER care complete, transfer ordered by . [facility] 23:36 Transferred by helicopter to [facility], Transfer form completed. tl1 X-rays sent w/ patient. 23:36 Transferred Note: Report given to Neuro ICU Lian GEORGES 23:36 Condition: stable 23:36 Instructed on the need for transfer. 23:40 Patient left the ED. tl1 Signatures: Dispatcher [employer] EDMS Melissa Blood RN RN aa1 Satish Jimenes MD MD cha Lasagna, Tonya, RN RN tl1 Tova Laura RN RN tl2 Roque Polanco Jennifer Krystyna De Dios
[2019-02-18] MEDS ORDERED: ENOXAPARIN 80 MG/0.8 ML SQ ONE (22:02)
[2019-02-18] MEDS ORDERED: ASPIRIN 81 MG CHEWABLE TABLET ONE (22:02)
[2019-02-18] MEDS ORDERED: METOPROLOL TAR 25 MG TAB ONE (22:02)
[2019-02-18] MEDS ORDERED: LEVETIRACETAM 500 MG/5 ML VIAL IV ONE (22:27)
[2019-02-18] MEDS ORDERED: niMODipine 30 MG CAP PO ONE (22:27)
[2019-02-18] MEDS ORDERED: ENALAPRILAT 1.25 MG/ML VIAL IV ONE (22:28)
[2019-02-18] MEDS ORDERED: NA CHLORIDE 0.9% 100 ML IV ONE (22:28)
--- NOTE | 2019-02-19 06:54 | EKG ---
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
--- NOTE | 2019-02-19 08:41 | RAD REPORT ---
EXAM DESCRIPTION: RAD - Chest Single View - 02/18/2019 9:38 pm CLINICAL HISTORY: Abdominal pain, abdominal distention COMPARISON: August 2017 TECHNIQUE: AP portable chest image was obtained 1 hours . FINDINGS: Lung volumes are low. Lung osborne are clear. Lung markings are similar to comparison. Surg ical clips are seen in the left upper chest. Heart and vasculature are normal. No measurable pleural effusion and no pneumothorax. No acute bony abnormality seen. No acute aortic findings suspected. IMPRESSION: No acute cardiopulmonary process. No significant interval change.
--- NOTE | 2019-02-19 11:02 | RAD REPORT ---
EXAM DESCRIPTION: CT - Head Brain Wo Cont - 02/19/2019 1:49 am ADDENDUM #1 THIS REPORT CONTAINS FINDINGS THAT MAY BE CRITICAL TO PATIENT CARE: Critical findings were verbally discussed via telephone conference with Satish Jimenes by Dr. Clare Crooks on 02/18/2019 9:55 PM CDT .The results were acknowledged and understood. Electronically signed by: Clare Crooks MD 02/18/2019 9:55 PM CDT End of Addendum EXAM DESCRIPTION: CT Head Without Intravenous Contrast CLINICAL HISTORY: 48 years old and is Female; HEADACHE TECHNIQUE: Axial computed tomography images of the head/brain without intravenous contrast. Sagitt al and coronal reformatted images were created and reviewed. This CT exam was performed using one o r more of the following dose reduction techniques: automated exposure control, adjustment of the mA and/or kV according to patient size, and/or use of iterative reconstruction technique. COMPARISON: 02/11/2019 FINDINGS: Limitations: None. Brain: There is new mild left frontal subarachnoid hemorrhage. No definite evidence of acute inf arct, mass or mass effect. No significant white matter disease. Ventricles: Unremarkable. No ventriculomegaly. Bones/joints: Unremarkable. No acute fracture. Soft tissues: Unremarkable. Sinuses: Unremarkable as visualized. No acute sinusitis. Mastoid air cells: Unremarkable as visualized. No mastoid effusion. IMPRESSION: There is new mild left frontal subarachnoid hemorrhage. Electronically signed by: Clare Crooks MD 02/18/2019 9:52 PM CDT Due to temporary technical issues with the PACS/Fluency reporting system, reports are being signed by the in house radiologist as a courtesy to ensure prompt reporting. The interpreting radiologist is f ully responsible for the content of the report.
--- NOTE | 2019-02-19 11:03 | RAD REPORT ---
EXAM DESCRIPTION: CT - Abdomen Pelvis W Contrast - 02/19/2019 1:49 am CLINICAL HISTORY: The patient is 48 years old and is Female; ABD PAIN TECHNIQUE: Axial computed tomography images of the abdomen and pelvis with intravenous contrast. S agittal and coronal reformatted images were created and reviewed. This CT exam was performed using one or more of the following dose reduction techniques: automated exposure control, adjustment of t he mA and/or kV according to patient size, and/or use of iterative reconstruction technique. COMPARISON: No relevant prior studies available. FINDINGS: LUNG BASES: Unremarkable. No mass. No consolidation. MEDIASTINUM: A small hiatal hernia is present. ABDOMEN: LIVER: Unremarkable. No mass. GALLBLADDER AND BILE DUCTS: No calcified stones. No ductal dilation. PANCREAS: No ductal dilation. No mass. SPLEEN: Unremarkable. ADRENALS: Unremarkable. No mass. KIDNEYS AND URETERS: A punctate left intrarenal calcification is present. The kidneys enhance sy mmetrically. No hydronephrosis or hydroureter of either kidney is seen. STOMACH AND BOWEL: The stomach is fluid-filled. The small bowel is normal in caliber. Minimal st ool is present throughout colon. Scattered colonic diverticula are present without surrounding inflam mation. There is no bowel obstruction. PELVIS: APPENDIX: No findings to suggest acute appendicitis. BLADDER: The bladder is not well distended. REPRODUCTIVE: The patient is status post hysterectomy. ABDOMEN and PELVIS: INTRAPERITONEAL SPACE: Unremarkable. No free air. No significant fluid collection. BONES/JOINTS: No acute fracture. SOFT TISSUES: Small fat-containing umbilical hernia is present. VASCULATURE: Unremarkable. No abdominal aortic aneurysm. LYMPH NODES: Unremarkable. No enlarged lymph nodes. IMPRESSION: 1. Colonic diverticulosis. 2. Left nephrolithiasis without obstruction. Electronically signed by: Mona Courtney MD 02/18/2019 10:02 PM CDT Due to temporary technical issues with the PACS/Fluency reporting system, reports are being signed by the in house radiologist as a courtesy to ensure prompt reporting. The interpreting radiologist is f ully responsible for the content of the report.
== END 2019-02-18 23:40 | disposition short-term general hospital (02) ==
LOC: ER 19:11
DX: I60.9 Nontraumatic subarachnoid hemorrhage, unspecified (principal); I21.4 Non-ST elevation (NSTEMI) myocardial infarction; R07.9 Chest pain, unspecified; I10 Essential (primary) hypertension; F17.210 Nicotine dependence, cigarettes, uncomplicated; E78.00 Pure hypercholesterolemia, unspecified; Z88.8 Allergy status to other drugs, medicaments and biological substances; Z91.040 Latex allergy status; Z91.048 Other nonmedicinal substance allergy status
CPT/HCPCS: 36415; 70450; 71045; 74177; 80048; 80076; 81003; 83690; 83735; 83880; 84484; 85025; 85610; 87086; 87088; 93005; J1650; J1953; J2405; J7030; Q9967

== ENCOUNTER 2021-02-22 15:50 | Emergency (ER) | payer BC ==
--- OUTSIDE RECORDS SUMMARY | 2021-02-22 16:00 | XMS REPORT | Continuity of Care Document ---
:1970 Author Organization [facility] t Address [address] [place] [address] Care Team Providers Name Role Phone BRYAN KEARNS Attending Clinician Unavailable BRYAN KEARNS Admitting Clinician Unavailable Problems Condition Condition Condition Status Onset Resolution Last Treating Co mments Source Name Details Category Date Date Treatment Clinician Date SAH SAH Disease Active [facility] (subarachn 02-19 [facility] - oid oid 00:00: Medical hemorrhage hemorrhage 00 Ce nter ) ) Allergies, Adverse Reactions, Alerts Allergy Allergy Status Severity Reaction(s) Onset Inactive Treating Comm ents Source Name Type Date Date Clinician Latex, Propensi Active [facility] 02[facility] Rubber adverse 00:00: Medical reaction 00 Center s Family History Family Member Diagnosis Comments Start Date Stop Date Source Natural father Hypertension [facility] Natural father Cancer [facility] Natural father Diabetes [facility] Natural father Hyperlipidemia [facility] Natural mother Diabetes [facility] Natural mother Hypertension [facility] Natural brother Diabetes [facility] Natural brother Hyperlipidemia [facility] Natural brother Hypertension [facility] Social History Social Habit Start Date Stop Date Quantity Comments Source Sex Assigned At [facility] Cigarettes smoked 2019-02-19 2019-02-[address] [facility] - current (pack per 00:00:00 00:00:00 [facility] Center day) - Reported Cigarette 2019-02-19 2019-02-[address] [facility] - pack-years 00:00:00 00:00:00 [facility] Tobacco use and 2019-02-19 2019-02-[address] [facility] Gabriella kes - exposure 00:00:00 00:00:00 [facility] Alcohol intake 2019-02-19 2019-02-19 [facility] (finding) Smoking Status Start Date Stop Date Source Current every day smoker 2019-02-19 [facility] Medications Ordered Filled Start Stop Current Ordering Indication Dosage Frequency Signature Comments Components Source Medication Medication Date Date Medication? Clinician (SIG) Name Name traMADol Yes 50mg Take [address] [facility] (ULTRAM) 50 7-05 tablet (50 Gabriella kes - mg tablet 00:00: mg total) Med ical 00 by mouth Center every 6 (six) hours as needed for Pain for up to 20 doses. Max Daily Amount: 200 mg butalbital- Yes 1{capsu Take [address] aspirin-caf 7-05 le} capsule by Gabriella farooq - coralne-codei 00:00: mouth Medic al ne 00 every 4 Center (BUTALBITAL (four) -ASPIRIN-CA hours as FFEINE-CODE needed for INE) Pain. Max 30-50-325-4 Daily 0 mg Amount: 6 capsule capsules hydroCHLORO Yes hypertensio 25mg QD Take [address] [facility] thiazide 7-04 n by mouth [facility] - (HYDRODIURI 16:06: daily . Med ical L) 50 MG 49 Center tablet propranolol Yes 40mg Q.5D Take [address] [facility] (INDERAL) 7-04 by mouth 2 [facility] - 40 MG 16:06: (two) Medical tablet 49 times Center daily. Procedures This patient has no known procedures. Plan of Care Planned Activity Planned Date Details Comments Source Future Scheduled 2022-02-[address] [facility] - Test 00:00:00 (procedure) [code = [facility] [id number]] Future Scheduled 2021-04-[address] [facility] - Test 00:00:00 (Season Ended) [code = Medic al Center INFLUENZA VACCINE (Season Ended)] Future Scheduled 2020-08-[address] [facility] - Test 00:00:00 (12+) [code = Medical Center DEPRESSION SCREENING (12+)] Future Scheduled 2018 SHINGLES VACCINES ([address] [facility] - Test 00:00:00 of 2) [code = SHINGLES Medic al Center VACCINES (1 of 2)] Future Scheduled [address] [facility] - Test 00:00:00 malignant neoplasm of [facility] cervix (procedure) [code = [id number]] Future Scheduled 1987-11-23 DTAP/TDAP/TD VACCINES [facility] - Test 00:00:00 (1 - Tdap) [code = Medical C enter DTAP/TDAP/TD VACCINES (1 - Tdap)] Future Scheduled 1986 HEPATITIS C SCREENING [facility] - Test 00:00:00 [code = HEPATITIS C Medical Center SCREENING] Future Scheduled 1980 COVID-19 VACCINE (1) [facility] - Test 00:00:00 [code = COVID-[address] VACCINE (1)] Future Scheduled [address] [facility] - Test 00:00:00 0-64 YRS (1 of 1 - Medical C enter PPSV23) [code = PNEUMOCOCCAL VACCINE 0-64 YRS (1 of 1 - PPSV23)] Future Scheduled [address] [facility] - Test 00:00:00 malignant neoplasm of [facility] breast (procedure) [code = [id number]] Future Scheduled [address] [facility] - Test 00:00:00 malignant neoplasm of [facility] colon (procedure) [code = 026017246] Results Test Description Test Time Test Comments Results Result Comments Source POCT-GLUCOSE METER 2019-02-20 13:23:00 Test Item Value Reference Range Interpretation Comme nts POC-GLUCOSE METER (BEAKER) (test 90 mg/dL 70-110 TESTED AT [place] [id number] [facility] code = 1538) [facility] [address], BRAIN, WITHOUT [id number] 13:16:00FINAL REPORT CT, BRAIN, WITHOUT CONTRAST CLINICAL INDICATION: Headache, SAH s uspected COMPARISON: February 18, 2019 TECHNIQUE: Noncontrast axial CT imaging of the brain and skull. DOSE REDUCTION: Dose modulation, iterative reconstruction, and/or weight-based adjustment of the mA/kV was utilized to reduce the radiation dose to as low as reasonably achievable. FINDINGS:Expected evolution of trace left frontal subarachnoid hemorrhage. No new hemorrhage. Midline structures are normally developed. No hydrocephalus. Orbits are within normal limits. No obstructive paranasal sinus disease. IMPRESSION: Expected evolution of trace left frontal subarachnoid hemorrhage. No new hemorrhage. If there is persistent clinical concern for intracranial pathology, MR examination is recommended for further characterization. Signed: Jessica Clark Verified Date/Time: 02/20/2019 13:16:09 Reading Location: [facility] B1 C013V Neuro Reading Room -GLUCOSE [id number] 07:59:00 Test Item Value Reference Range Interpretation Comments POC-GLUCOSE METER 96 mg/dL 70-110 TESTED AT [facility] ([facility]) (test code = JESSICA [place] [facility] [address] 1538) TROPONIN [id number] 04:45:00 Test Item Value Reference Range Interpretation Comments TROPONIN I (BEAKER) (test code = 0.03 ng/mL 0.00-0.03 397) Troponin I (TnI) levels must be interpreted in the context of the presenting symptoms and the clinical findings. Elevated TnI levels indicate myocardial damage, but are not specific for ischemic heart disease. Elevated TnI levels are seen in patients with other cardiac conditions (including myocarditis and congestive heart failure), and slight TnI elevations occur in patients with other conditions, including sepsis, renal failure, acidosis, acute neurological disease, and persistent tachyarrhythmia.BASIC METABOLIC [id number] 04:39:00 Test Item Value Reference Range Interpretation Comments SODIUM (BEAKER) 138 meq/L 136-145 (test code = 381) POTASSIUM (BEAKER) 4.3 meq/L 3.5-5.1 (test code = 379) CHLORIDE (BEAKER) 108 meq/L 98-107 H (test code = 382) CO2 (BEAKER) (test 23 meq/L 22-29 code = 355) BLOOD UREA NITROGEN 17 mg/dL 7-21 (BEAKER) (test code = 354) CREATININE (BEAKER) 0.72 mg/dL 0.57-1.25 (test code = 358) GLUCOSE RANDOM 90 mg/dL 70-105 (BEAKER) (test code = 652) CALCIUM (BEAKER) 9.0 mg/dL 8.4-10.2 (test code = 697) EGFR (BEAKER) (test mL/min/1.73 INSUFFIC IENT CLINICAL code = 1092) sq m DATA TO CALCULA TE ESTIMATED GFR. [id number] 04:37:00 Test Item Value Reference Range Interpretation Comments PHOSPHORUS (BEAKER) (test code = 3.6 mg/dL 2.3-4.7 604) [id number] 04:37:00 Test Item Value Reference Range Interpretation Comments MAGNESIUM (BEAKER) (test code = 2.0 mg/dL 1.6-2.6 627) CBC W/PLT COUNT & AUTO [id number] 04:27:00 Test Item Value Reference Range Interpretation Comments WHITE BLOOD CELL COUNT (BEAKER) 7.8 K/ L 3.5-10.5 (test code = 775) RED BLOOD CELL COUNT (BEAKER) 3.96 M/ L 3.93-5.22 (test code = 761) HEMOGLOBIN (BEAKER) (test code = 12.0 GM/DL 11.2-15.7 410) HEMATOCRIT (BEAKER) (test code = 37.7 % 34.1-44.9 411) MEAN CORPUSCULAR VOLUME (BEAKER) 95.2 fL 79.4-94.8 H (test code = 753) MEAN CORPUSCULAR HEMOGLOBIN 30.3 pg 25.6-32.2 (BEAKER) (test code = 751) MEAN CORPUSCULAR HEMOGLOBIN CONC 31.8 GM/DL 32.2-35.5 L (BEAKER) (test code = 752) RED CELL DISTRIBUTION WIDTH 13.6 % 11.7-14.4 (BEAKER) (test code = 412) PLATELET COUNT (BEAKER) (test 257 K/CU MM 150-450 code = 756) MEAN PLATELET VOLUME (BEAKER) 9.9 fL 9.4-12.3 (test code = 754) NUCLEATED RED BLOOD CELLS 0 /100 WBC 0-0 (BEAKER) (test code = 413) NEUTROPHILS RELATIVE PERCENT 53 % (BEAKER) (test code = 429) LYMPHOCYTES RELATIVE PERCENT 35 % (BEAKER) (test code = 430) MONOCYTES RELATIVE PERCENT 8 % (BEAKER) (test code = 431) EOSINOPHILS RELATIVE PERCENT 3 % (BEAKER) (test code = 432) BASOPHILS RELATIVE PERCENT 1 % (BEAKER) (test code = 437) NEUTROPHILS ABSOLUTE COUNT 4.18 K/ L 1.56-6.13 (BEAKER) (test code = 670) LYMPHOCYTES ABSOLUTE COUNT 2.74 K/ L 1.18-3.74 (BEAKER) (test code = 414) MONOCYTES ABSOLUTE COUNT (BEAKER) 0.64 K/ L 0.24-0.36 H (test code = 415) EOSINOPHILS ABSOLUTE COUNT 0.20 K/ L 0.04-0.36 (BEAKER) (test code = 416) BASOPHILS ABSOLUTE COUNT (BEAKER) 0.06 K/ L 0.01-0.08 (test code = 417) IMMATURE GRANULOCYTES-RELATIVE 0 % 0-1 PERCENT (BEAKER) (test code = 2801) POCT-GLUCOSE [id number] 00:03:00 Test Item Value Reference Range Interpretation Comments POC-GLUCOSE METER 93 mg/dL 70-110 TESTED AT [facility] ([facility]) (test code = [facility] [address] 1538) TROPONIN [id number] 17:20:00 Test Item Value Reference Range Interpretation Comments TROPONIN I ([facility]) (test code = 0.03 ng/mL 0.00-0.03 397) Troponin I (TnI) levels must be interpreted in the context of the presenting symptoms and the clinical findings. Elevated TnI levels indicate myocardial damage, but are not specific for ischemic heart disease. Elevated TnI levels are seen in patients with other cardiac conditions (including myocarditis and congestive heart failure), and slight TnI elevations occur in patients with other conditions, including sepsis, renal failure, acidosis, acute neurological disease, and persistent tachyarrhythmia.PLATELET AGGREGATION: FUNCTION SCREEN 2019-02-19 16:50:00 Test Item Value Reference Range Interpretation Comments WEAK ADP 90 % 60-91 RESULT([facility]) (test code = 2135) PLATELET FUNCTION 60-100% indicates SCREEN INTERP ([facility]) normal platelet (test code = 2173) function [id number] Larry Haynes M.D. ([facility]) (test code = (electonic signature) 0510) PLATELET COUNT AGG 245 K/CU MM 150-450 (ELIZA) (test code = 2656) Platelet Function Screen results may be falsely low with platelet counts<100,000/cu mm.POCT-GLUCOSE [id number] 11:52:00 Test Item Value Reference Range Interpretation Comments POC-GLUCOSE METER 121 mg/dL 70-110 H TESTED AT [facility] ([facility]A) (test code = [place] 1538) [address] TROPONIN [id number] 09:43:00 Test Item Value Reference Range Interpretation Comments TROPONIN I ([facility]IZA) (test code = 0.04 ng/mL 0.00-0.03 H 397) Troponin I (TnI) levels must be interpreted in the context of the presenting symptoms and the clinical findings. Elevated TnI levels indicate myocardial damage, but are not specific for ischemic heart disease. Elevated TnI levels are seen in patients with other cardiac conditions (including myocarditis and congestive heart failure), and slight TnI elevations occur in patients with other conditions, including sepsis, renal failure, acidosis, acute neurological disease, and persistent tachyarrhythmia.CT, CTANGIO [id number] 08:45:00 FINAL REPORT CLINICAL HISTORY: Headache, SAH TECHNIQUE: Initially, noncontrast head CT images were performed. Contiguous contrast- enhanced axial images through the head with coronal and sagittal reformations to assess the arterial circulation. 3-D reconstructions were performedusing a volume rendered technique separately on a workstation. This exam was performed according to the departmental dose optimization program which includes automated exposure control, adjustment of the mA and/or kV according to the patient size, and/or use of an iterative reconstruction technique. COMPARISON: None FINDINGS: There is trace subarachnoid hemorrhage in the left mid frontal lobe. There is no CT evidence for acute infarct. There is no hydrocephalus, midline shift, or apparent mass effect. There are no extra-axial fluid collections. The skull is intact. There is no CT evidence for an aneurysm. A vascular malformation is also not identified on this single phase exam. There is no evidence for a [place] proximal branch vessel occlusion. The major intradural venous sinuses are patent. IMPRESSION: Trace left frontal subarachnoid hemorrhage. No CTA evidence for aneurysm or focal vascular malformation. The findings were discussed with the neurology service at the time of dictation. Signed: Ryan Wright Verified Date/Time: 02/19/2019 08:45:04 Reading Location: [facility] C013V Neuro Reading Room [id number] 04:17:00 Test Item Value Reference Range Interpretation Comments COL/EPI CLOSURE TIME (BEAKER) > Seconds 78-191 H (test code = 1801) COL/ADP CLOSURE TIME (BEAKER) 67 Seconds 43-122 (test code = 1802) PLATELET COUNT AGG (BEAKER) (test 267 K/CU MM 150-450 code = 2656) Hematocrit <35% or platelet count <150,000/CU MM may contribute to falsely elevated PFA-100.[id number] 03:31:00 Test Item Value Reference Range Interpretation Comments PARTIAL THROMBOPLASTIN TIME 38.6 seconds 22.5-36.0 H (BEAKER) (test code = 760) PROTHROMBIN [id number] 03:29:00 Test Item Value Reference Range Interpretation Comments PROTIME (BEAKER) (test code = 14.0 seconds 11.9-14.2 759) INR (BEAKER) (test code = 370) 1.1 <=5.9 Effective 01/15/2019: PT Reference Range ChangeNew: 11.9-14.2 Previous: 11.7- 14.7RECOMMENDED COUMADIN/WARFARIN INR THERAPY RANGESSTANDARD DOSE: 2.0-3.0 Includes: PROPHYLAXIS for venous thrombosis, systemic embolization; TREATMENT for venous thrombosis and/or pulmonary embolus.HIGH RISK: Target INR is2.5-3.5 for patients wiht mechanical heart valves.BASIC METABOLIC [id number] 03:28:00 Test Item Value Reference Range Interpretation Comments SODIUM (BEAKER) 141 meq/L 136-145 (test code = 381) POTASSIUM (BEAKER) 3.8 meq/L 3.5-5.1 (test code = 379) CHLORIDE (BEAKER) 106 meq/L 98-107 (test code = 382) CO2 (BEAKER) (test 28 meq/L 22-29 code = 355) BLOOD UREA NITROGEN 14 mg/dL 7-21 (BEAKER) (test code = 354) CREATININE (BEAKER) 0.78 mg/dL 0.57-1.25 (test code = 358) GLUCOSE RANDOM 97 mg/dL 70-105 (BEAKER) (test code = 652) CALCIUM (BEAKER) 9.2 mg/dL 8.4-10.2 (test code = 697) EGFR (BEAKER) (test mL/min/1.73 INSUFFIC IENT CLINICAL code = 1092) sq m DATA TO CALCULA TE ESTIMATED GFR. [id number] 03:27:00 Test Item Value Reference Range Interpretation Comments PHOSPHORUS (BEAKER) (test code = 4.1 mg/dL 2.3-4.7 604) [id number] 03:27:00 Test Item Value Reference Range Interpretation Comments MAGNESIUM (BEAKER) (test code = 1.9 mg/dL 1.6-2.6 627) LIPID [id number] 03:27:00 Test Item Value Reference Range Interpretation Comments TRIGLYCERIDES (BEAKER) (test code = 369 mg/dL 540) CHOLESTEROL (BEAKER) (test code = 203 mg/dL 631) HDL CHOLESTEROL (BEAKER) (test code 31 mg/dL = 976) LDL CHOLESTEROL CALCULATED (BEAKER) 98 mg/dL (test code = 633) Triglyceride Reference Range: Low Risk <150 Borderline 150-199 High Risk 200-499 Very High Risk >=500Cholesterol Reference Range: Low Risk <200 Borderline 200-239 High Risk >240HDL Cholesterol Reference Range: Low Risk >=60 High Risk <40LDL Cholesterol Reference Range: Optimal <100 Near Optimal 100-129 Borderline 130-159 High 160-189 Very High >=190CBC W/PLT COUNT & AUTO [id number] 03:06:00 Test Item Value Reference Range Interpretation Comments WHITE BLOOD CELL COUNT (BEAKER) 12.1 K/ L 3.5-10.5 H (test code = 775) RED BLOOD CELL COUNT (BEAKER) 4.04 M/ L 3.93-5.22 (test code = 761) HEMOGLOBIN (BEAKER) (test code = 12.3 GM/DL 11.2-15.7 410) HEMATOCRIT (BEAKER) (test code = 38.1 % 34.1-44.9 411) MEAN CORPUSCULAR VOLUME (BEAKER) 94.3 fL 79.4-94.8 (test code = 753) MEAN CORPUSCULAR HEMOGLOBIN 30.4 pg 25.6-32.2 (BEAKER) (test code = 751) MEAN CORPUSCULAR HEMOGLOBIN CONC 32.3 GM/DL 32.2-35.5 (BEAKER) (test code = 752) RED CELL DISTRIBUTION WIDTH 13.4 % 11.7-14.4 (BEAKER) (test code = 412) PLATELET COUNT (BEAKER) (test 294 K/CU MM 150-450 code = 756) MEAN PLATELET VOLUME (BEAKER) 10.0 fL 9.4-12.3 (test code = 754) NUCLEATED RED BLOOD CELLS 0 /100 WBC 0-0 (BEAKER) (test code = 413) NEUTROPHILS RELATIVE PERCENT 65 % (BEAKER) (test code = 429) LYMPHOCYTES RELATIVE PERCENT 26 % (BEAKER) (test code = 430) MONOCYTES RELATIVE PERCENT 7 % (BEAKER) (test code = 431) EOSINOPHILS RELATIVE PERCENT 1 % (BEAKER) (test code = 432) BASOPHILS RELATIVE PERCENT 1 % (BEAKER) (test code = 437) NEUTROPHILS ABSOLUTE COUNT 7.86 K/ L 1.56-6.13 H (BEAKER) (test code = 670) LYMPHOCYTES ABSOLUTE COUNT 3.16 K/ L 1.18-3.74 (BEAKER) (test code = 414) MONOCYTES ABSOLUTE COUNT (BEAKER) 0.81 K/ L 0.24-0.36 H (test code = 415) EOSINOPHILS ABSOLUTE COUNT 0.13 K/ L 0.04-0.36 (BEAKER) (test code = 416) BASOPHILS ABSOLUTE COUNT (BEAKER) 0.09 K/ L 0.01-0.08 H (test code = 417) IMMATURE GRANULOCYTES-RELATIVE 0 % 0-1 PERCENT (BEAKER) (test code = 3044)
[2021-02-22] MEDS ORDERED: KETOROLAC 30 MG/ML INJ ONE (17:43)
[2021-02-22] MEDS ORDERED: DIPHENHYDRAMINE 50 MG/ML VIAL ONE (17:43)
[2021-02-22] MEDS ORDERED: METOCLOPRAMIDE 10 MG/2mL INJ ONE (17:43)
[2021-02-22] MEDS ORDERED: NA CHLORIDE 0.9% 1,000 ML ONE (17:43)
[2021-02-22 17:45] LABS: Absolute Lymphocytes (CBC) 2.9 K/uL (0.7-4.9); Basophils % 1.5 % (0-1.3); Hematocrit 39.5 % (36.0-45.0); MPV 8.6 fL (7.6-11.3)
[2021-02-22 17:54] LABS: Albumin 4.3 g/dL (3.4-5.0); Bilirubin Total 0.4 mg/dL (0.2-1.0); Potassium 3.4 mmol/L (3.5-5.1); Protein, Total 7.8 g/dL (6.4-8.2)
--- NOTE | 2021-02-22 18:00 | RAD REPORT ---
EXAM DESCRIPTION: CT - Head angio - 02/22/2021 5:44 pm CLINICAL HISTORY: Declining state;Confused TECHNIQUE: During dynamic enhancement using nonionic IV contrast, axial 1 millimeter thick images of the head were obtained. Sagittal and axial reconstruction images were generated using MIP technique and reviewed. All CT scans are performed using dose optimization technique as appropriate and may include automated exposure control or mA/KV adjustment according to patient size. COMPARISON: CT head same date FINDINGS: No aneurysm or vascular malformation identified. Major venous sinuses are patent. No stenosis, named branch occlusion, vasculitis or other significant vascular finding identifiable. IMPRESSION: Negative CT angio head examination.
--- NOTE | 2021-02-22 18:00 | RAD REPORT ---
EXAM DESCRIPTION: CT - Head Brain Wo Cont - 02/22/2021 5:44 pm CLINICAL HISTORY: DIZZINESS COMPARISON: Head Brain Wo Cont dated 02/18/2019 TECHNIQUE: Axial 5 mm thick images of the head were obtained without IV contrast. All CT scans are performed using dose optimization technique as appropriate and may include automated exposure control or mA/KV adjustment according to patient size. FINDINGS: No intracranial hemorrhage, mass, edema or shift of mid-line structures. No acute infarcti on changes seen. No abnormal extra-axial fluid collections. Ventricles are normal. Mastoid air cells and visualized portions of the paranasal sinuses are clear. No acute bony findings. No significant change comparison. IMPRESSION: Negative non-contrast CT head examination.
--- NOTE | 2021-02-22 18:29 | ER ---
Nurse's Notes [facility] Name: Tanna Phelps Age: 50 yrs Sex: Female : 1970 Arrival Date: 02/22/2021 Time: 16:25 Bed 13 Private MD: Diagnosis: Hypokalemia;Headache;Migraine without aura, not intractable Presentation: 02/22 16:26 Chief complaint: Patient states: headache, nausea, R eye twitching x 1 day. Coronavirus sv screen: Client denies travel out of the [place] in the last 14 days. At this time, the client does not indicate any symptoms associated with coronavirus-19. Ebola Screen: No symptoms or risks identified at this time. Risk Assessment: Do you want to hurt yourself or someone else? Patient reports no desire to harm self or others. Onset of symptoms was February 21, 2021. 16:26 Method Of Arrival: Ambulatory sv 16:26 Acuity: JOE 3 sv 16:27 Initial Sepsis Screen: Does the patient meet any 2 criteria? No. Patient's initial sv sepsis screen is negative. Does the patient have a suspected source of infection? No. Patient's initial sepsis screen is negative. Triage Assessment: 16:28 General: Appears in no apparent distress. uncomfortable, Behavior is calm, cooperative, sv appropriate for age. Pain: Complains of pain in face. Neuro: Level of Consciousness is awake, alert, obeys commands, Oriented to person, place, time, situation, Gait is steady. Respiratory: Respiratory effort is even, unlabored. Historical: - Allergies: 16:26 Latex, Natural Rubber; sv - PMHx: 16:26 Asthma; High Cholesterol; Hypertension; Migraines; sv - Immunization history:: Client reports having NOT received the Covid vaccine. - Social history:: Smoking status: Patient denies any tobacco usage or history of. - Family history:: not pertinent. Screenin:36 Abuse screen: Denies threats or abuse. Denies injuries from another. Nutritional ph screening: No deficits noted. Tuberculosis screening: No symptoms or risk factors identified. Fall Risk None identified. Assessment: 17:39 General: Appears in no apparent distress. uncomfortable, Behavior is calm, cooperative, ph appropriate for age, Denies fever. Pain: Complains of pain in right base of the skull and right occipital area and right side of the back of head and right frontal area and left base of the skull and left occipital area and left temporal area and left side of the back of head and left frontal area and forehead and top of head. Neuro: Level of Consciousness is awake, alert, obeys commands, Oriented to person, place, time, situation, Reports headache in entire photophobia. Cardiovascular: Capillary refill < 3 seconds in bilateral fingers Patient's skin is warm and dry. Respiratory: Airway is patent Respiratory effort is even, unlabored, Respiratory pattern is regular, symmetrical. GI: Reports nausea. Derm: Skin is intact, is healthy with good turgor, Skin is pink, warm \\T\\ dry. Musculoskeletal: Circulation, motion, and sensation intact. Range of motion: intact in all extremities. 19:00 Reassessment: Patient appears in no apparent distress at this time. Patient and/or ph family updated on plan of care and expected duration. Pain level reassessed. Patient is alert, oriented x 3, equal unlabored respirations, skin warm/dry/pink. pending completion of fluid bolus, pt continues to c/o headache, states, " It got a little better but it's getting worse again.", ERP notified, no further orders at this time. Vital Signs: 16:27 BP 134 / 81; Pulse 67; Resp 18; Temp 97; Pulse Ox 99% ; Weight 74.39 kg; Height 5 ft. 0 sv in. (152.40 cm); Pain 10/10; 18:00 BP 127 / 87; Pulse 64; Resp 18; Temp 97.3; Pulse Ox 99% on R/A; ph 16:27 Body Mass Index 32.03 (74.39 kg, 152.40 cm) sv [place] Coma Score: 17:20 Eye Response: spontaneous(4). Verbal Response: oriented(5). Motor Response: obeys maldonado commands(6). Total: 15. ED Course: 16:25 Patient arrived in ED. ds1 16:26 Triage completed. sv 16:27 Arm band placed on. sv 16:59 Satish Jimenes MD is Attending Physician. maldonado 16:59 Cara Marroquin, RN is Primary Nurse. ph 17:44 CT Head Angio In Process Unspecified. EDMS 17:44 CT Head Brain wo Cont In Process Unspecified. EDMS 18:29 [place], [place], MD is Referral Physician. maldonado 18:36 Patient has correct armband on for positive identification. Call light in reach. Side ph rails up X2. Pulse ox on. NIBP on. Door closed. Noise minimized. Lights dimmed. 18:37 No provider procedures requiring assistance completed. ph 19:15 Primary Nurse role handed off by Cara Marroquin, RN mw2 19:47 IV discontinued, intact, bleeding controlled, No redness/swelling at site. bs2 Administered Medications: 17:33 Drug: Ketorolac 30 mg Route: IVP; Site: right antecubital; jl7 19:30 Follow up: Response: No adverse reaction bs2 18:10 Drug: NS 0.9% 1000 ml Route: IV; Rate: 1 bolus; Site: right antecubital; ph 18:11 Drug: Benadryl (diphenhydrAMINE) 50 mg Route: IVP; Site: right antecubital; ph 19:30 Follow up: Response: No adverse reaction bs2 18:11 Drug: Reglan (metoCLOPramide) 10 mg Route: IVP; Site: right antecubital; ph 19:31 Follow up: Response: No adverse reaction bs2 Outcome: 18:29 Discharge ordered by . [facility] 19:46 Discharged to home ambulatory, with family. bs2 19:46 Condition: improved 19:46 Discharge instructions given to patient, Instructed on discharge instructions, follow up and referral plans. medication usage, Demonstrated understanding of instructions, follow-up care, medications, Prescriptions given X 2. 19:47 Patient left the ED. bs2 Signatures: Dispatcher [employer] [facility] Nathalia Tinajero RN RN sv Anderson, Corey, MD MD cha Sanford, Demi ds1 Cara Marroquin RN RN Rodolfo Ayala RN RN jl7 Bassam Fisher mw2 Danielle Knowles bs2 Corrections: (The following items were deleted from the chart) 16:27 16:26 Allergies: Topamax; sv sv 16:29 16:27 Pulse 67bpm; Resp 18bpm; Pulse Ox 99%; Temp 97F; 74.39 kg; Height 5 ft. 0 in.; sv BMI: 32.0; Pain 10/10; sv
--- NOTE | 2021-02-22 18:30 | EDPHYS ---
Physician Documentation [facility] Name: Tanna Phelps Age: 50 yrs Sex: Female : 1970 Arrival Date: 02/22/2021 Time: 16:25 Bed 13 Private MD: TWAN Physician Satish Jimenes HPI: 02/22 17:19 This 50 yrs old Female presents to ER via Ambulatory with complaints of malodnado Headache. 17:19 The patient complains of pain to the top of head, forehead, left frontal area, left maldonado side of the back of head, left temporal area, left occipital area, left base of the skull, right frontal area, right side of the back of head, right occipital area and right base of the skull. The patient describes the headache as aching. Onset: The symptoms/episode began/occurred 1 day(s) ago. Associated signs and symptoms: The patient has no apparent associated signs or symptoms. Severity of symptoms: At its worst the pain was moderate, in the emergency department the pain is unchanged. Headache History: The patient has had previous headaches and this one is similar to previous episodes. The symptoms are alleviated by Darkened room, quiet, remaining still, the symptoms are aggravated by foods, lights, movement. The patient has experienced similar episodes in the past, a few times. Historical: - Allergies: 16:26 Latex, Natural Rubber; sv - PMHx: 16:26 Asthma; High Cholesterol; Hypertension; Migraines; sv - Immunization history:: Client reports having NOT received the Covid vaccine. - Social history:: Smoking status: Patient denies any tobacco usage or history of. - Family history:: not pertinent. ROS: 17:19 Constitutional: Negative for fever, chills, and weight loss, Eyes: Negative for injury, maldonado pain, redness, and discharge, ENT: Negative for injury, pain, and discharge, Neck: Negative for injury, pain, and swelling, Cardiovascular: Negative for chest pain, palpitations, and edema, Respiratory: Negative for shortness of breath, cough, wheezing, and pleuritic chest pain, Abdomen/GI: Negative for abdominal pain, nausea, vomiting, diarrhea, and constipation, Back: Negative for injury and pain, : Negative for injury, bleeding, discharge, and swelling, MS/Extremity: Negative for injury and deformity, Skin: Negative for injury, rash, and discoloration, Psych: Negative for depression, anxiety, suicide ideation, homicidal ideation, and hallucinations, Allergy/Immunology: Negative for hives, rash, and allergies, Endocrine: Negative for neck swelling, polydipsia, polyuria, polyphagia, and marked weight changes, Hematologic/Lymphatic: Negative for swollen nodes, abnormal bleeding, and unusual bruising. 17:19 Neuro: Positive for headache. Exam: 17:19 Constitutional: This is a well developed, well nourished patient who is awake, alert, maldonado and in no acute distress. Head/Face: Normocephalic, atraumatic. Eyes: Pupils equal round and reactive to light, extra-ocular motions intact. Lids and lashes normal. Conjunctiva and sclera are non-icteric and not injected. Cornea within normal limits. Periorbital areas with no swelling, redness, or edema. ENT: Nares patent. No nasal discharge, no septal abnormalities noted. Tympanic membranes are normal and external auditory canals are clear. Oropharynx with no redness, swelling, or masses, exudates, or evidence of obstruction, uvula midline. Mucous membranes moist. Neck: Trachea midline, no thyromegaly or masses palpated, and no cervical lymphadenopathy. Supple, full range of motion without nuchal rigidity, or vertebral point tenderness. No Meningismus. Chest/axilla: Normal chest wall appearance and motion. Nontender with no deformity. No lesions are appreciated. Cardiovascular: Regular rate and rhythm with a normal S1 and S2. No gallops, murmurs, or rubs. Normal PMI, no JVD. No pulse deficits. Respiratory: Lungs have equal breath sounds bilaterally, clear to auscultation and percussion. No rales, rhonchi or wheezes noted. No increased work of breathing, no retractions or nasal flaring. Abdomen/GI: Soft, non-tender, with normal bowel sounds. No distension or tympany. No guarding or rebound. No evidence of tenderness throughout. Back: No spinal tenderness. No costovertebral tenderness. Full range of motion. Female : Normal external genitalia. Skin: Warm, dry with normal turgor. Normal color with no rashes, no lesions, and no evidence of cellulitis. MS/ Extremity: Pulses equal, no cyanosis. Neurovascular intact. Full, normal range of motion. Neuro: Awake and alert, GCS 15, oriented to person, place, time, and situation. Cranial nerves II-XII grossly intact. Motor strength 5/5 in all extremities. Sensory grossly intact. Cerebellar exam normal. Normal gait. Psych: Awake, alert, with orientation to person, place and time. Behavior, mood, and affect are within normal limits. 18:17 Neck: ROM/movement: is normal, no acute changes, Meningeal signs: are not present, maldonado Kernig's sign is negative, Brudzinski's sign is negative. Vital Signs: 16:27 BP 134 / 81; Pulse 67; Resp 18; Temp 97; Pulse Ox 99% ; Weight 74.39 kg; Height 5 ft. 0 sv in. (152.40 cm); Pain 10/10; 18:00 BP 127 / 87; Pulse 64; Resp 18; Temp 97.3; Pulse Ox 99% on R/A; ph 16:27 Body Mass Index 32.03 (74.39 kg, 152.40 cm) sv [place] Coma Score: 17:20 Eye Response: spontaneous(4). Verbal Response: oriented(5). Motor Response: obeys [facility] commands(6). Total: 15. MDM: 16:59 Patient medically screened. [facility] 17:20 Differential diagnosis: cluster headache, hypoglycemia, hyponatremia, migraine, maldonado neoplasm, sinusitis, subarachnoid bleed, temporal arteritis, tension headache, vasomotor headache. Data reviewed: vital signs, nurses notes, lab test result(s), radiologic studies, CT scan. 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 Test interpretation: by ED physician or midlevel provider:. Counseling: I had a detailed discussion with the patient and/or guardian regarding: the historical points, exam findings, and any diagnostic results supporting the discharge/admit diagnosis, lab results, radiology results. 02/22 17:17 Order name: CBC with Diff; Complete Time: 18:00 [facility] 02/22 17:17 Order name: Comprehensive Metabolic Panel; Complete Time: 18:00 [facility] 02/22 17:17 Order name: CT Head Angio; Complete Time: 18:01 [facility] 02/22 17:17 Order name: CT Head Brain wo Cont; Complete Time: 18:10 [facility] 02/22 18:37 Order name: Urine Dipstick-Ancillary [facility] 02/22 17:17 Order name: Urine Dipstick-Ancillary (obtain specimen); Complete Time: 19:31 [facility] 02/22 17:17 Order name: Oxygen; Complete Time: 17:33 maldonado Administered Medications: 17:33 Drug: Ketorolac 30 mg Route: IVP; Site: right antecubital; jl7 19:30 Follow up: Response: No adverse reaction bs2 18:10 Drug: NS 0.9% 1000 ml Route: IV; Rate: 1 bolus; Site: right antecubital; ph 18:11 Drug: Benadryl (diphenhydrAMINE) 50 mg Route: IVP; Site: right antecubital; ph 19:30 Follow up: Response: No adverse reaction bs2 18:11 Drug: Reglan (metoCLOPramide) 10 mg Route: IVP; Site: right antecubital; ph 19:31 Follow up: Response: No adverse reaction bs2 Disposition Summary: 02/22/21 18:29 Discharge Ordered Location: Home maldonado Problem: new maldonado Symptoms: have improved maldonado Condition: Stable maldonado Diagnosis - Hypokalemia maldonado - Headache maldonado - Migraine without aura, not intractable maldonado Followup: maldonado - With: Private Physician - When: 2 - 3 days - Reason: Recheck today's complaints, Continuance of care, Re-evaluation by your physician Followup: maldonado - With: - When: 2 - 3 days - Reason: Recheck today's complaints, Re-evaluation by your physician Discharge Instructions: - Discharge Summary Sheet maldonado - Potassium Content of Foods maldonado - Migraine Headache maldonado - Migraine Headache, [id number] maldonado - Hypokalemia maldonado Forms: - Medication Reconciliation Form maldonado - Thank You Letter maldonado - Antibiotic Education maldonado - Prescription Opioid Use maldonado Prescriptions: - Fioricet with Codeine [id number] mg Oral capsule - take 1 capsule by ORAL route every 4 hours as needed not to exceed 6 capsules maldonado per 24hrs; 15 capsule; Refills: 0, Product Selection Permitted - Zofran 4 mg Oral Tablet - take 1 tablet by ORAL route every 12 hours As needed; 20 tablet; Refills: 0, maldonado Product Selection Permitted Signatures: Dispatcher [employer] Nathalia Grajeda RN RN sv Anderson, Corey, MD MD cha Hall, Patricia, RN RN ph Rodolfo Ayala RN RN jl7 Danielle Knowles bs2 Corrections: (The following items were deleted from the chart) 16:27 16:26 Allergies: Topamax; sv sv
[2021-02-22 18:37] LABS: Urine Blood Negative (Negative); Urine Glucose Negative (Negative); Urine Protein Negative (Negative); Urine Specific Gravity <=1.005 (1.005-1.030)
[2021-02-22 19:52] VITALS: O2SAT 99
[2021-02-22 19:53] VITALS: BP 127/87; TEMP 97.3
== END 2021-02-22 19:47 | disposition home or self-care (01) ==
LOC: ER 15:50
DX: E87.6 Hypokalemia (principal); G43.009 Migraine without aura, not intractable, without status migrainosus; I10 Essential (primary) hypertension; Z91.040 Latex allergy status; Z91.048 Other nonmedicinal substance allergy status
CPT/HCPCS: 85025; 36415; 82565; 81003; 80053; 70450; 70496; 96375; 96374; 99284; Q9967; J2765; J1200; J7030

== ENCOUNTER 2024-01-14 17:53 | Emergency (ER) | payer BC ==
[2024-01-14] MEDS ORDERED: ONDANSETRON 4 MG/2 ML VIAL ONE (18:42)
[2024-01-14] MEDS ORDERED: NA CHLORIDE 0.9% 1,000 ML ONE (18:42)
[2024-01-14] MEDS ORDERED: MORPHINE 4 MG/ML SYR ONE (18:42)
[2024-01-14 19:28] LABS: Albumin 4.6 g/dL (3.4-5.0); Albumin/Globulin Ratio 1.6 (1.1-1.8); Anion Gap 8.4 mEq/L (5.0-15.0); Bilirubin Total 0.3 mg/dL (0.2-1.0); Globulin 2.8 g/dL (2.3-3.5); Potassium 3.4 mEq/L (3.5-5.1); Protein, Total 7.4 g/dL (6.4-8.2)
--- NOTE | 2024-01-14 20:13 | RAD REPORT ---
EXAM DESCRIPTION: CTAbdomen Pelvis W Contrast - 01/14/2024 8:05 pm CLINICAL HISTORY: ABD PAIN COMPARISON: Abdomen Pelvis W Contrast dated 08/07/2019; Abdomen Pelvis W Contrast dated 02/18/2019 TECHNIQUE: CT of the abdomen and pelvis was performed. All CT scans are performed using dose optimization technique as appropriate and may include automated exposure control or mA/KV adjustment according to patient size. FINDINGS: Lower chest: Circumferentially thickened distal esophagus likely reflecting esophagitis. Liver: No acute abnormality or suspicious lesions. Biliary: No biliary ductal dilatation. Stomach: No significant focal abnormality. Duodenum: No significant focal abnormality. Pancreas: No significant abnormality. Spleen: No significant abnormality. Adrenal: No suspicious lesions. Kidney/ureter: No hydronephrosis. 9 mm stone in the right renal pelvis. Right-sided urothelial thicke megan and periureteric stranding is present. Retroperitoneum: No retroperitoneal adenopathy. Vascular: No aneurysm. Mild atherosclerosis . Bowel: Diverticulosis without diverticulitis.. Peritoneum: No ascites or free air. Bladder: Grossly unremarkable. Reproductive: Hysterectomy. Bones: No acute fracture. Other: n/a IMPRESSION: 1. 9 mm stone in the right renal pelvis with urothelial thickening and periureteric stra nding concerning for infection inflammation. No hydronephrosis. 2. Circumferential thickened distal esophagus likely reflecting esophagitis.
[2024-01-14] MEDS ORDERED: TAMSULOSIN 0.4 MG SR CAP ONE (20:15)
[2024-01-14] MEDS ORDERED: MAGNESIUM SULFATE 1 gm IVPB 1 GM/100 ML BAG IV ONE (20:15)
[2024-01-14 20:30] LABS: Calcium Oxalate Crystals- Ur Few /HPF (None Seen); Specific Gravity 1.026 (1.005-1.030); Sqamous Epithelial <5 /HPF (None Seen); Urine Bacteria None Seen /HPF (<20); Urine Bilirubin NEGATIVE (Negative); Urine Blood 3+ (OVER) (Negative); Urine Clarity Extremely Turbid (Clear); Urine Color Yellow (Yellow); Urine Culture Reflex Order NOT NEEDED; Urine Glucose NEGATIVE (Negative); Urine Ketones NEGATIVE (Negative); Urine Microscopic Reflex YN ORDER UMIC; Urine Mucus 3+ /HPF (None Seen); Urine Nitrite NEGATIVE (Negative); Urine Protein 1+ (Negative); Urine RBC >50 /HPF (None Seen); Urine Urobilinogen Normal (Normal)
[2024-01-14 21:15] LABS: Absolute Basophils 0.1 K/uL (0-0.5); Absolute Eosinophils 0.3 K/uL (0-0.5); Absolute Lymphocytes (CBC) 2.3 K/uL (0.7-4.9); Absolute Monocytes 0.6 K/uL (0.1-1.3); Absolute Neutrophil 5.5 K/uL (1.8-8.0); Eosinophils % 3.7 % (0-4.4); Hematocrit 40.9 % (36.0-45.0); Hemoglobin 13.7 g/dL (12.0-15.0); Lymphocytes % 25.9 % (15.3-44.8); MCH 30.6 pg (27.0-35.0); MCHC 33.4 g/dL (32.0-36.0); MCV 91.6 fL (80-100); MPV 8.8 fL (7.6-11.3); Monocytes % 7.1 % (3.3-12.3); Neutrophils % 62.3 % (41.7-73.7); Nucleated Red Blood Cells % 0.1 % (0-0); Platelets 329 thou/uL (152-406); RBC Red Blood Cell Count 4.47 M/uL (3.86-4.86); Red Cell Distribution Width 14.2 % (12.1-15.2)
[2024-01-14] MEDS ORDERED: CEFTRIAXONE 1000 MG/VIAL ONE (21:26)
--- NOTE | 2024-01-14 21:42 | EDPHYS ---
Physician Documentation [facility] Name: Tanna Phelps Age: 53 yrs Sex: Female : 1970 Arrival Date: 01/14/2024 Time: 17:53 Bed 8 Private MD: ED Physician Satish Jimenes HPI: 01/13 18:29 This 53 yrs old Female presents to ER via Unassigned with complaints of flank pain. sb4 18:29 patient states she was diagnosed with an 8mm kidney stone 2 months ago and has been sb4 dealing with pain ever since. has not been able to see urology yet. was prescribed ketorolac and tamsulosin by PCP but has not taken it because she was scared to. reports history of multiple kidney stones and has had a few ureteral stents placed. additionally, states she has been off and on antibiotics for UTIs the past 2 months. Historical: - Allergies: 18:29 Latex; cm10 - PMHx: 18:29 Asthma; High Cholesterol; Hypertension; Migraines; Kidney stone; cm10 - Immunization history:: Adult Immunizations up to date. - Infectious Disease History:: Denies. - Social history:: Smoking status: Patient reports the use of cigarette tobacco products, smokes one pack cigarettes per day. ROS: 18:29 Constitutional: Negative for fever, chills, and weight loss, sb4 18:29 Abdomen/GI: Positive for nausea, 18:29 Back: Positive for flank pain, on the right, 18:29 : Positive for burning with urination, Negative for difficulty urinating, 18:29 All other systems are negative, Exam: 18:29 Head/Face: Normocephalic, atraumatic. Eyes: Extra-ocular motions intact. Periorbital sb4 areas with no swelling, redness, or edema. ENT: Mucous membranes moist. Cardiovascular: Regular rate and rhythm with a normal S1 and S2. Respiratory: Lungs have equal breath sounds bilaterally, clear to auscultation and percussion. No rales, rhonchi or wheezes noted. No increased work of breathing, no retractions or nasal flaring. Abdomen/GI: Soft, non-tender, no distension. Skin: Warm, dry with normal turgor. Normal color with no rashes, no lesions, and no evidence of cellulitis. MS/ Extremity: Pulses equal, no cyanosis. Neurovascular intact. Full, normal range of motion. 18:29 Constitutional: The patient appears alert, awake, uncomfortable, 18:29 Back: CVA tenderness, is noted on the right, Vital Signs: 18:27 BP 168 / 89; Pulse 86; Resp 18; Pulse Ox 98% on R/A; Weight 76.66 kg (M); Height 5 ft. cm10 0 in. ; Pain 7/10; 18:35 Temp 97.5(TE); ko1 18:45 BP 129 / 78; Pulse 82; Resp 16; Pulse Ox 100% on R/A; ko1 19:44 BP 101 / 64; Pulse 84; Resp 16; Pulse Ox 98% on R/A; kd3 20:27 BP 150 / 82; Pulse 78; Resp 17; Pulse Ox 98% on R/A; kd3 21:51 BP 137 / 81; Pulse 70; Resp 18; Temp 97.5; Pulse Ox 100% ; Pain 0/10; bm8 18:27 Body Mass Index 33.01 (76.66 kg, 152.4 cm) cm10 18:27 Pain Scale: Adult cm10 21:51 Pain Scale: Adult bm8 [place] Coma Score: 21:51 Eye Response: spontaneous(4). Motor Response: obeys commands(6). Verbal Response: bm8 oriented(5). Total: 15. MDM: 18:16 Patient medically screened. sb4 21:41 Data reviewed: vital signs, nurses notes, lab test result(s), radiologic studies, and sb4 as a result, I will discharge patient. Care significantly affected by the following chronic conditions: Hypertension. Counseling: I had a detailed discussion with the patient and/or guardian regarding the historical points, exam findings, and any diagnostic results supporting the discharge/admit diagnosis, lab results, radiology results, the need for outpatient follow up, a urologist, to return to the emergency department if symptoms worsen or persist or if there are any questions or concerns that arise at home. 01/13 18:28 Order name: CBC with Diff; Complete Time: 21:29 sb4 01/13 18:28 Order name: CMP; Complete Time: 19:34 sb4 01/13 18:28 Order name: Lipase; Complete Time: 19:34 sb4 01/13 18:28 Order name: Urinalysis w/ reflexes; Complete Time: 20:32 sb4 01/13 18:28 Order name: Urine Culture sb4 01/13 18:28 Order name: CT Abd/Pelvis - IV Contrast Only; Complete Time: 20:14 sb4 01/13 18:28 Order name: IV Saline Lock; Complete Time: 18:40 sb4 01/13 18:28 Order name: Labs collected and sent; Complete Time: 18:40 sb4 Administered Medications: 18:53 Drug: NS 0.9% IV 1000 ml IV at 1 bolus Per protocol; 1000 mL bolus Route: IV; Rate: 1 ko1 bolus; Site: right antecubital; 21:53 Follow up: Response: No adverse reaction; IV Status: Completed infusion bm8 18:53 Drug: Ondansetron IVP 4 mg IVP once; over 2 minutes Route: IVP; Site: right antecubital;ko1 21:53 Follow up: Response: No adverse reaction bm8 18:53 Drug: morphine IVP or IV 4 mg IVP once over 4 mins Route: IVP; Infused Over: 4 mins; ko1 Site: right antecubital; 21:53 Follow up: Response: No adverse reaction bm8 20:18 Drug: Flomax PO 0.4 mg PO once Route: PO; jb4 21:52 Follow up: Response: No adverse reaction bm8 20:24 Drug: Magnesium Sulfate IVPB 1 grams IVPB once over 1 hrs Route: IVPB; Infused Over: 1 jb4 hrs; Site: right antecubital; 21:52 Follow up: Response: No adverse reaction; IV Status: Completed infusion bm8 21:33 Drug: Rocephin IV 1 grams IV at calculated rate once; Given slow IV push per pharmacy kd3 instructions Route: IV; Rate: calculated rate; Site: right antecubital; 21:52 Follow up: Response: No adverse reaction; IV Status: Completed infusion; IV Intake: [id number] Disposition Summary: 01/14/24 21:41 Discharge Ordered Problem: an ongoing problem sb4 Symptoms: have improved sb4 Condition: Stable sb4 Diagnosis - Calculus of kidney - 9 mm, right sb4 Followup: sb4 - With: Nathaniel Kahn MD - When: 2 - 3 days - Reason: Recheck today's complaints, Re-evaluation by your physician Discharge Instructions: - Discharge Summary Sheet sb4 - Kidney Stones sb4 Forms: - Antibiotic Education sb4 - Patient Portal Instructions sb4 - Leadership Thank You Letter sb4 Prescriptions: - cefpodoxime 100 mg Oral Tablet - take 1 tablet ORAL route every 12 hours for 10 days take with food; 20 tablet; sb4 Refills: 0, Product Selection Permitted Signatures: Dispatcher [employer] EDMS Paul Paniagua, RN RN jb4 Renay Santana, RN RN kd3 Melva Flaherty RN RN hero1 Sosa Ta PA-C PAJuani sb4 Melissa New RN RN cm10 Curtis Arthur RN bm8 Corrections: (The following items were deleted from the chart) 18:28 18:28 CBC+H.LAB.BRZ ordered. EDMS EDMS 18:28 18:28 COMPREHENSIVE METABOLIC PANEL+C.LAB.BRZ ordered. EDMS EDMS 18:28 18:28 LIPASE+C.LAB.BRZ ordered. EDMS EDMS 18:28 18:28 Urinalysis+U.LAB.BRZ ordered. EDMS EDMS 18:28 18:28 Abdomen Pelvis W Con+CT.RAD.BRZ ordered. EDMS EDMS 18:28 18:28 Urine Culture+BA.LAB.BRZ ordered. EDMS EDMS
--- NOTE | 2024-01-14 21:42 | ER ---
Nurse's Notes [facility] Name: Tanna Phelps Age: 53 yrs Sex: Female : 1970 Arrival Date: 01/14/2024 Time: 17:53 Bed 8 Private MD: Diagnosis: Calculus of kidney-9 mm, right Presentation: 01/13 18:27 Chief complaint: Patient states: Right sided flank pain. Pt states that she was cm10 diagnosed with an 8mm kidney stone 2 months ago. Coronavirus screen: Client denies travel out of the [place] in the last 14 days. At this time, the client does not indicate any symptoms associated with coronavirus-19. Ebola Screen: Patient denies travel to an Ebola-affected area in the 21 days before illness onset. No symptoms or risks identified at this time. Initial Sepsis Screen: Does the patient meet any 2 criteria? No. Patient's initial sepsis screen is negative. Does the patient have a suspected source of infection? No. Patient's initial sepsis screen is negative. Risk Assessment: Do you want to hurt yourself or someone else? Patient reports no desire to harm self or others. Onset of symptoms was January 14, 2024. 18:27 Method Of Arrival: Ambulatory cm10 18:27 Acuity: JOE 3 cm10 Triage Assessment: 18:30 General: Appears in no apparent distress. comfortable, Behavior is calm, cooperative. cm10 Pain: Complains of pain in right mid back. EENT: No deficits noted. Neuro: No deficits noted. Level of Consciousness is awake, alert, obeys commands, Oriented to person, place, time, situation, Appropriate for age. Respiratory: No deficits noted. Airway is patent Respiratory effort is even, unlabored, Respiratory pattern is regular, symmetrical. Historical: - Allergies: 18:29 Latex; cm10 - PMHx: 18:29 Asthma; High Cholesterol; Hypertension; Migraines; Kidney stone; cm10 - Immunization history:: Adult Immunizations up to date. - Infectious Disease History:: Denies. - Social history:: Smoking status: Patient reports the use of cigarette tobacco products, smokes one pack cigarettes per day. Screenin:45 [facility] ED Fall Risk Assessment (Adult) History of falling in the last 3 months, ko1 including since admission No falls in past 3 months (0 pts) Confusion or Disorientation No (0 pts) Intoxicated or Sedated No (0 pts) Impaired Gait No (0 pts) Mobility Assist Device Used No (0 pt) Altered Elimination No (0 pt) Score/Fall Risk Level 0 - 2 = Low Risk Oriented to surroundings, Maintained a safe environment, Educated pt \T\ family on fall prevention, incl call for assistance when getting out of bed, Assessed \T\ reinforced patient's understanding of fall precautions, Provided non-skid footwear, Hourly rounding (assess needs \T\ fall precautionary measures) done. Abuse screen: Denies threats or abuse. Denies injuries from another. Nutritional screening: No deficits noted. Tuberculosis screening: No symptoms or risk factors identified. Assessment: 18:45 GI: Bowel sounds present X 4 quads. Abd is soft and non tender X 4 quads. ko1 19:41 General: Pt is independently ambulatory to the restroom for urine sample. Pt instructed kd3 on urine collection and instructed to return to the room when finished. . 19:44 Neuro: Level of Consciousness is awake, alert, obeys commands, Oriented to person, kd3 place, time, situation. Cardiovascular: Patient's skin is warm and dry. Respiratory: Airway is patent Trachea midline Respiratory effort is even, unlabored, Respiratory pattern is regular, symmetrical. 21:51 Reassessment: Patient appears in no apparent distress at this time. Patient and/or bm8 family updated on plan of care and expected duration. Pain level reassessed. Patient is alert, oriented x 3, equal unlabored respirations, skin warm/dry/pink. Patient denies pain at this time. Patient states feeling better. Patient states symptoms have improved. Vital Signs: 18:27 BP 168 / 89; Pulse 86; Resp 18; Pulse Ox 98% on R/A; Weight 76.66 kg (M); Height 5 ft. cm10 0 in. ; Pain 7/10; 18:35 Temp 97.5(TE); ko1 18:45 BP 129 / 78; Pulse 82; Resp 16; Pulse Ox 100% on R/A; ko1 19:44 BP 101 / 64; Pulse 84; Resp 16; Pulse Ox 98% on R/A; kd3 20:27 BP 150 / 82; Pulse 78; Resp 17; Pulse Ox 98% on R/A; kd3 21:51 BP 137 / 81; Pulse 70; Resp 18; Temp 97.5; Pulse Ox 100% ; Pain 0/10; bm8 18:27 Body Mass Index 33.01 (76.66 kg, 152.4 cm) cm10 18:27 Pain Scale: Adult cm10 21:51 Pain Scale: Adult bm8 Tobi Coma Score: 21:51 Eye Response: spontaneous(4). Motor Response: obeys commands(6). Verbal Response: bm8 oriented(5). Total: 15. ED Course: 17:54 Patient arrived in ED. mr 17:56 Sosa Ta PA-C is PHCP. sb4 17:56 Satish Jimenes MD is Attending Physician. sb4 18:21 Lissa Quintana RN is Primary Nurse. mb9 18:29 Triage completed. cm10 18:30 Arm band placed on Patient placed in an exam room, on a stretcher. cm10 18:35 Initial lab(s) drawn, by me, sent to lab. Inserted saline lock: 20 gauge in right ko1 antecubital area, using aseptic technique. Blood collected. 18:40 CBC with Diff Sent. ko1 18:40 CMP Sent. ko1 18:40 Lipase Sent. ko1 18:45 Patient has correct armband on for positive identification. Allergy band placed. Placed ko1 in gown. Bed in low position. Call light in reach. Side rails up X 1. Provided Education on: labs, call light. Client placed on continuous cardiac and pulse oximetry monitoring. NIBP monitoring applied. monitoring and evaluation advisor on. Door closed. Noise minimized. Lights dimmed. Warm blanket given. Pillow given. 18:45 No provider procedures requiring assistance completed. ko1 20:07 CT Abd/Pelvis - IV Contrast Only In Process Unspecified. EDMS 21:41 Nathaniel Kahn MD is Referral Physician. sb4 21:51 IV discontinued, intact, bleeding controlled, No redness/swelling at site. Pressure bm8 dressing applied. Administered Medications: 18:53 Drug: NS 0.9% IV 1000 ml IV at 1 bolus Per protocol; 1000 mL bolus Route: IV; Rate: 1 ko1 bolus; Site: right antecubital; 21:53 Follow up: Response: No adverse reaction; IV Status: Completed infusion bm8 18:53 Drug: Ondansetron IVP 4 mg IVP once; over 2 minutes Route: IVP; Site: right antecubital;ko1 21:53 Follow up: Response: No adverse reaction bm8 18:53 Drug: morphine IVP or IV 4 mg IVP once over 4 mins Route: IVP; Infused Over: 4 mins; ko1 Site: right antecubital; 21:53 Follow up: Response: No adverse reaction bm8 20:18 Drug: Flomax PO 0.4 mg PO once Route: PO; jb4 21:52 Follow up: Response: No adverse reaction bm8 20:24 Drug: Magnesium Sulfate IVPB 1 grams IVPB once over 1 hrs Route: IVPB; Infused Over: 1 jb4 hrs; Site: right antecubital; 21:52 Follow up: Response: No adverse reaction; IV Status: Completed infusion bm8 21:33 Drug: Rocephin IV 1 grams IV at calculated rate once; Given slow IV push per pharmacy kd3 instructions Route: IV; Rate: calculated rate; Site: right antecubital; 21:52 Follow up: Response: No adverse reaction; IV Status: Completed infusion; IV Intake: [id number] Medication: 21:51 VIS not applicable for this client. bm8 Intake: 21:52 IV: 10ml; Total: 10ml. bm8 Outcome: 21:41 Discharge ordered by . sb4 21:51 Discharged to home ambulatory, with family, bm8 21:51 Condition: stable 21:51 Discharge instructions given to patient, Instructed on discharge instructions, follow up and referral plans. Demonstrated understanding of instructions, follow-up care, Prescriptions given X 1, 21:54 Patient left the ED. bm8 Signatures: Dispatcher [employer] EDCT Lissa Gilman, Reg Reg HerreidPaul, RN RN jb4 Renay Santana RN RN kd3 Melva Flaherty RN RN ko1 Sosa Ta, PA-Lucy PA-C [email or web address] Lissa Quintana, RN RN mb9 Melissa New, DESTINI RN cm10 Curtis Arthur, RN RN bm8
[2024-01-14 22:36] VITALS: BP 137/81; TEMP 97.5; O2SAT 100
== END 2024-01-14 21:54 | disposition home or self-care (01) ==
LOC: ER 17:53
DX: N20.0 Calculus of kidney (principal); Z87.442 Personal history of urinary calculi; F17.210 Nicotine dependence, cigarettes, uncomplicated
CPT/HCPCS: 96365; 96361; 87088; 85025; 81001; 87086; 36415; 83690; 80053; 74177; 96375; 99285; Q9967; J3475; J2405; J7030; J0696

== ENCOUNTER 2024-02-05 08:40 | Day surgery (SDC) | payer BC ==
[2024-01-29 16:43] LABS: Absolute Basophils 0.1 K/uL (0-0.5); Absolute Eosinophils 0.5 K/uL (0-0.5); Absolute Lymphocytes (CBC) 2.6 K/uL (0.7-4.9); Absolute Monocytes 0.9 K/uL (0.1-1.3); Absolute Neutrophil 5.9 K/uL (1.8-8.0); Basophils % 1.2 % (0-1.3); Hematocrit 40.7 % (36.0-45.0); Hemoglobin 13.5 g/dL (12.0-15.0); Lymphocytes % 25.7 % (15.3-44.8); MCHC 33.2 g/dL (32.0-36.0); MCV 90.5 fL (80-100); MPV 8.4 fL (7.6-11.3); Monocytes % 9.2 % (3.3-12.3); Neutrophils % 58.9 % (41.7-73.7); Platelets 336 thou/uL (152-406); RBC Red Blood Cell Count 4.49 M/uL (3.86-4.86); Red Cell Distribution Width 14.1 % (12.1-15.2)
[2024-01-29 17:12] LABS: Anion Gap 6.4 mEq/L (5.0-15.0); Potassium 3.4 mEq/L (3.5-5.1)
[2024-01-29 17:17] LABS: PT Prothrombin Time 12.1 SECONDS (9.5-12.5); Protime INR 1.1
[2024-02-05] MEDS: Ringers Lactate 0 ML IV ONE (08:56)
[2024-02-05] MEDS: HYDRALAZINE HCL 20 MG/ML VIAL ONE (09:57)
[2024-02-05] MEDS ORDERED: FENTANYL CITR 100 MCG/2 ML ONE ×2 (10:00→10:51)
[2024-02-05] MEDS ORDERED: propofoL 200 MG/20 ML VIAL IV ONE (10:00)
[2024-02-05] MEDS ORDERED: LIDOCAINE 1% MPF 5 ML VIAL ONE (10:01)
[2024-02-05] MEDS ORDERED: GENTAMICIN 80 MG/100 ML BAG 160 MG/200 ML BAG IV ONE (10:10)
[2024-02-05] MEDS: AMPICILLIN SODIUM 2 GM/VIAL VIAL ONE (10:16)
[2024-02-05] MEDS: Ringers Lactate 1,000 ML IV ONE (10:17)
[2024-02-05] MEDS ORDERED: MIDAZOLAM HCL 2 MG/2 ML INJ ONE (10:18)
[2024-02-05] MEDS ORDERED: ONDANSETRON 4 MG/2 ML VIAL ONE (10:37)
[2024-02-05] MEDS ORDERED: dexAMETHasone 10 MG/ML VIAL ONE (10:37)
[2024-02-05] MEDS: PHENAZOPYRIDINE 100MG TAB PO ONE (11:31)
[2024-02-05] MEDS ORDERED: Phenylephrine HCl 10 MG/ML 1 ML VIAL ONE (11:33)
[2024-02-05] MEDS ORDERED: HYDROCODONE/APAP 5/325 MG TAB ONE (12:14)
[2024-02-05] MEDS ORDERED: PHENAZOPYRIDINE 100MG TAB PO ONE (12:14)
--- NOTE | 2024-02-05 12:40 | RAD REPORT ---
EXAM DESCRIPTION: RAD - Urethrocystogrphy Retrograde - 02/05/2024 11:26 am CLINICAL HISTORY: RT STENT COMPARISON: None available. FINDINGS: Nine Images were sent to PACS, documenting fluoroscopy use during an image guided right st ent placement procedure. No radiologist was available for the procedure, nor will any image interpret ation he provided. Please refer to the procedural report for additional details. Fluoroscopy time: 6 seconds. IMPRESSION: Documentation of fluoroscopy utilization as above.
[2024-02-05] MEDS: HYDROCODONE/APAP 5/325 MG TAB PO PRN (12:50)
[2024-02-05 14:01] VITALS: BP 137/73; TEMP 97.4; O2SAT 94
--- NOTE | 2024-02-05 22:01 | OP ---
Surgeon: HANS CHIN Preoperative Diagnoses: 1.9 mm right proximal ureterolithiasis. 2.Status post right ureteral stent placement. Postoperative Diagnoses: 1.9 mm right proximal ureterolithiasis. 2.Status post right ureteral stent placement. Principal Procedures: 1.Cystoscopy. 2.Right retrograde pyelography. 3.Right ureteroscopy with pyeloscopy and laser lithotripsy. 4.Right tethered ureteral stent exchange. Indication For Procedure: Ms. Phelps presented via the Urology Clinic with severe right flank pain ass ociated with a proximal obstructing ureteral calculus. She underwent urgent stent placement and pres ents today for definitive management of her stone. Procedure In Detail: The patient was consented in the preoperative holding area before being transfe rred to the operative suite, where general anesthesia was induced. Ampicillin 2 g and gentamicin 160 mg IV antimicrobial prophylaxis was provided, and pneumo boots were provided for DVT prophylaxis. S he was placed in the lithotomy position, padded and secured to the table appropriately. Her genitali a were prepped with Hibiclens, and she was draped in standard fashion. The case was begun using a 22 -Kazakh rigid cystoscope to traverse the urethra and into the bladder with ease. The bladder was dec ompressed of fluid and urine, and then surveyed. The ureteral orifices were orthotopic in location a nd the ureteral stent was emanating from the right ureteral orifice. I grasped the tip of the coil o f the stent and delivered it to the meatus, then using the stent to pass a Sensor wire into the putat mike collecting system. Over the wire, I removed the stent leaving the wire in place and then passed a dual-lumen catheter into the mid ureter until I reached a point of resistance. I then injected a 7 0:30 mixture of Omnipaque and saline via the second lumen of the dual-lumen catheter to perform a ret rograde study. Right retrograde pyelography: Using the 70:30 mixture of Omnipaque and saline, contrast was injected via the lumen of the dual-lumen catheter and did propagate up the mid into the proximal ureter befor e entering the renal pelvis, where a bit of a filling defect was observed at the UPJ. Because of the point of resistance encountered in the mid ureter, I elected to remove the INPHI guidewire and ins tead performed direct vision semi-rigid ureteroscopy into the proximal ureter to ensure no stenosis o r other obstructing stone was encountered in the mid ureter. No stone was seen, and so since the sto ne was clearly beyond the point of visualization with the semi-rigid catheter, I then placed a Bentso n guidewire via the semi-rigid ureteroscope, coiling it in the collecting system. I then removed the semi-rigid ureteroscope, leaving the wire in place and passed a ureteral access sheath 12 x 14-Frenc h, all the way into the renal pelvis over the Bentson guidewire. The Sensor wire remained outside of the access sheath as a safety wire. I then passed the flexible ureteroscope all the way into the co llecting system and surveyed the upper and mid pole calyces before visualizing the stone in the renal pelvis. Of note, some fragments of the stone were noted in the ureter during semi-rigid ureteroscop y, likely that broke off just with simple manipulation of the wire as the stone was very friable. Th e stone was lodged at the renal pelvis near the UPJ; so I used a 272 nm laser fiber at a power settin g of 0.8 joules and 25 hertz to quickly fragment that stone, which was quite soft, into dust. Contin ued fragmentation was undertaken until no fragments larger than 1 mm max were observed. In fact, mos t fragments were likely smaller than about 7 tenths of a mm. The majority of fragments were smaller than the laser fiber. I then advanced the ureteral access sheath over the scope into the calyces in order to use it to sort of suction, irrigate the stone material out of the calyces successfully from the mid and upper pole calyces. I then removed the ureteral access sheath and surveying the ureter o n the way out with the ureteroscope to ensure no ureteral injury or residual stone, and when none was noted, removed both the ureteroscope and the ureteral access sheath. I then back-loaded the cystosc ope over the safety wire and passed a 6-Kazakh by 24 cm double-J ureteral stent with ease with a coil observed fluoroscopically in the kidney and one cystoscopically formed in the bladder. The stent wa s left on its tether, and after I decompressed her bladder of fluid and urine, the stent was secured to her introitus using Mastisol and Steri-Strips. Of note, some stone dust was collected from the ur eteral access sheath and sent for chemical analysis. The patient was then taken out of the lithotomy position, awakened from general anesthesia, transferred to a stretcher, and then transferred to the recovery room in good condition. Complications: None. Discharge Disposition: She has a tethered ureteral stent, which may be removed on Sunday in the ce. She will be given a prescription for Bactrim DS to be taken once a day as prophylaxis until the stent is removed. Subsequent followup should be established in the Urology Clinic if she is a recurr ent stone former, with her obtaining a Litholink x2 metabolic assessment 1 month after the stent is r emoved. Subsequent followup may be established with me electively. WINDY/MAISHA Voice ID: [id number] Report ID: [id number]
== END 2024-02-05 13:10 | disposition home or self-care (01) ==
LOC: OR 08:40
PROVIDERS: ATTEND Urology
PROC: 0T768DZ Dilation of Right Ureter with Intraluminal Device, Via Natural or Artificial Opening Endoscopic (ICD-10-PCS; 2024-02-05)
PROC: 0TF68ZZ Fragmentation in Right Ureter, Via Natural or Artificial Opening Endoscopic (ICD-10-PCS; principal; 2024-02-05 10:30)
DX: N20.1 Calculus of ureter (principal); E78.5 Hyperlipidemia, unspecified; I10 Essential (primary) hypertension; F32.A Depression, unspecified
CPT/HCPCS: 87088; 85025; 87086; 80048; 36415; 85610; 88300; 82360; 74450; 51610; 52356; J0360; J2704; J2001; J2371; J2250; J3010 ×2; J1100; J2405; J0290; J7120; J1580

== ENCOUNTER 2024-10-31 21:02 | Inpatient (IN) | payer BC ==
[2024-10-31] MEDS ORDERED: ONDANSETRON 4 MG/2 ML VIAL ONE (21:42)
[2024-10-31] MEDS ORDERED: KETOROLAC 30 MG/ML INJ ONE (21:42)
[2024-10-31] MEDS ORDERED: MORPHINE 4 MG/ML SYR ONE ×2 (21:43→23:25)
[2024-10-31] MEDS ORDERED: NA CHLORIDE 0.9% 1,000 ML ONE (21:43)
[2024-10-31 22:02] LABS: Absolute Basophils 0.1 K/uL (0-0.5); Absolute Eosinophils 0.4 K/uL (0-0.5); Absolute Lymphocytes (CBC) 2.5 K/uL (0.7-4.9); Absolute Monocytes 0.7 K/uL (0.1-1.3); Absolute Neutrophil 4.9 K/uL (1.8-8.0); Basophils % 1.2 % (0-1.3); Eosinophils % 4.2 % (0-4.4); Hematocrit 40.6 % (36.0-45.0); Hemoglobin 13.9 g/dL (12.0-15.0); Lymphocytes % 29.3 % (15.3-44.8); MCH 31.7 pg (27.0-35.0); MCHC 34.3 g/dL (32.0-36.0); MCV 92.3 fL (80-100); MPV 7.7 fL (7.6-11.3); Monocytes % 7.8 % (3.3-12.3); Neutrophils % 57.5 % (41.7-73.7); Nucleated Red Blood Cells % 0.1 % (0-0); Platelets 350 thou/uL (152-406); RBC Red Blood Cell Count 4.39 M/uL (3.86-4.86); Red Cell Distribution Width 14.1 % (12.1-15.2)
[2024-10-31 22:16] LABS: Albumin 4.2 g/dL (3.4-5.0); Albumin/Globulin Ratio 1.1 (1.1-1.8); Anion Gap 6.7 mEq/L (5.0-15.0); Bilirubin Total 0.3 mg/dL (0.2-1.0); Globulin 3.9 g/dL (2.3-3.5); Potassium 3.7 mEq/L (3.5-5.1); Protein, Total 8.1 g/dL (6.4-8.2)
--- NOTE | 2024-10-31 22:50 | RAD REPORT ---
EXAMINATION: CT Abdomen Pelvis W Contrast CLINICAL INDICATION: Female, 53 years old. l side abd pain and flank pain TECHNIQUE: CT abdomen and pelvis was performed, after the administration of IV contrast, as per [facility] protocol. Axial, sagittal and coronal reconstructions were obtained. One or more of the following dose reduction techniques were used: Automated exposure control, adjustment of the mA and k V according to patient size, and iterative reconstruction. Unless otherwise specified, incidental findings do not require dedicated imaging follow-up. COMPARISON: 01/14/2024 FINDINGS: LOWER CHEST: The visualized lung bases are clear. LIVER: Normal in size and contour. No focal lesion. BILIARY SYSTEM: Distended gallbladder. Small layering calculi at the fundus. Mild pericholecystic flu id. SPLEEN: Normal size. No focal lesion. PANCREAS: No mass, ductal dilation, or bulmaro-pancreatic fluid. ADRENALS: Normal; no mass. KIDNEYS: Normal size and contour. No hydronephrosis. URINARY BLADDER: Unremarkable. GASTROINTESTINAL TRACT: No evidence of free air, significant intra-abdominal free fluid, bowel obstru ction or abscess. Mild distal colonic diverticulosis. APPENDIX: Appendix not visualized, but no inflammatory changes in region of appendix. LYMPH NODES: No lymphadenopathy. MUSCULOSKELETAL: No acute or suspicious osseous abnormality. ADDITIONAL FINDINGS: None. IMPRESSION: Distended gallbladder with mild pericholecystic fluid and small gallstones at the fundus. Please mayito elate clinically for evidence of acute cholecystitis. Incidental findings as above.
--- NOTE | 2024-10-31 23:59 | RAD REPORT ---
Clinical Indication: Bed Name: 16; ruq gb eval Comparison: None TECHNIQUE: Grayscale and limited color sonographic evaluation of the right upper quadrant of the abdomen and gal lbladder region was performed with standard technique. FINDINGS: LIVER: The visualized liver shows normal contour, size, and morphology with normal parenchymal echo texture. Color Doppler demonstrates the portal vein to be patent with hepatopedal flow. BILE DUCTS: The intrahepatic and extrahepatic bile ducts are not dilated with the common bile duct measuring 2. 9 mm. The distal common bile duct is not well seen. GALLBLADDER: The gallbladder is mildly contracted. Small shadowing echogenic foci are noted in the fundus, consist ent with small gallstones. A tiny amount of pericholecystic fluid is noted. The gallbladder wall measures 3.1 mm in thickness. Sonographic Pérez sign was not evaluated due to medication status. ASCITES: There is no right upper quadrant abdominal ascites. IMPRESSION: 1. Cholelithiasis with small amount of pericholecystic fluid. Findings are somewhat equivocal for acu te cholecystitis. Electronically signed by: Wilmar Mena MD 10/31/2024 11:55 PM CDT RP Due to temporary technical issues with the PACS/5k Fans scribe reporting system, reports are being sign ed by the in-house radiologist without review as a courtesy to ensure prompt reporting the interpreting rad iologist is fully responsible for the content of the report. Transcribed Date/Time: 10/31/2024 11:59 PM
--- NOTE | 2024-11-01 00:06 | ER ---
Nurse's Notes [facility] Name: Tanna Phelps Age: 53 yrs Sex: Female : 1970 Arrival Date: 10/31/2024 Time: 21:02 Bed 16 Private MD: Diagnosis: Acute cholecystitis Presentation: 10/31 21:25 Chief complaint: Patient states: abdominal pain, low back pain. Coronavirus screen: kj2 Client denies travel out of the [place] in the last 14 days. Ebola Screen: No symptoms or risks identified at this time. Initial Sepsis Screen: Does the patient meet any 2 criteria? No. Patient's initial sepsis screen is negative. Does the patient have a suspected source of infection? No. Patient's initial sepsis screen is negative. Risk Assessment: Do you want to hurt yourself or someone else? Patient reports no desire to harm self or others. Onset of symptoms was October 31, 2024. 21:25 Method Of Arrival: Ambulatory kj2 21:25 Acuity: JOE 3 kj2 Triage Assessment: 21:20 General: Appears uncomfortable, Behavior is calm, cooperative. Pain: Complains of pain kj2 in abdomen, low back Pain currently is 9 out of 10 on a pain scale. Neuro: Level of Consciousness is awake, alert, obeys commands, Oriented to person, place, time, situation. Cardiovascular: Patient's skin is warm and dry. Respiratory: Airway is patent Respiratory effort is unlabored. GI: No signs and/or symptoms were reported involving the gastrointestinal system. Historical: - Allergies: 21:20 Latex; kj2 - PMHx: 21:20 Asthma; High Cholesterol; Hypertension; Kidney stone; Migraines; kj2 - Immunization history:: Adult Immunizations unknown. - Infectious Disease History:: Denies. - Social history:: Smoking status: unknown. Screenin:20 [facility] ED Fall Risk Assessment (Adult) History of falling in the last 3 months, kj2 including since admission No falls in past 3 months (0 pts) Confusion or Disorientation No (0 pts) Intoxicated or Sedated No (0 pts) Impaired Gait No (0 pts) Mobility Assist Device Used No (0 pt) Altered Elimination No (0 pt) Score/Fall Risk Level 0 - 2 = Low Risk Maintained a safe environment, Hourly rounding (assess needs \T\ fall precautionary measures) done. Abuse screen: Denies threats or abuse. Denies injuries from another. Nutritional screening: No deficits noted. Tuberculosis screening: No symptoms or risk factors identified. Assessment: 21:25 General: see triage assessment. kj2 22:30 Reassessment: Patient appears in no apparent distress at this time. Patient and/or kj2 family updated on plan of care and expected duration. Pain level reassessed. Patient is alert, oriented x 3, equal unlabored respirations, skin warm/dry/pink. 23:33 Reassessment: Patient appears in no apparent distress at this time. Patient and/or kj2 family updated on plan of care and expected duration. Pain level reassessed. Patient is alert, oriented x 3, equal unlabored respirations, skin warm/dry/pink. Vital Signs: 21:20 Weight 74.84 kg; Height 5 ft. 0 in. ; kj2 21:25 BP 209 / 100; Pulse 89; Resp 20; Temp 98; Pulse Ox 98% on R/A; kj2 22:30 BP 180 / 87; Pulse 82; Resp 20; Pulse Ox 100% on R/A; kj2 11/01 01:09 BP 115 / 74; Pulse 80; Resp 17; Temp 98; Pulse Ox 97% on R/A; rg5 10/31 21:20 Body Mass Index 32.22 (74.84 kg, 152.4 cm) kj2 ED Course: 10/31 21:04 Patient arrived in ED. jj6 21:05 Roman Rosa MD is Attending Physician. ec2 21:20 Arm band placed on. kj2 21:25 Inserted saline lock: 20 gauge in left antecubital area, using aseptic technique. Blood af3 collected. Flushed with 10 mL NS. 21:50 Phylicia Polanco, RN is Primary Nurse. kj2 21:58 Triage completed. kj2 22:02 Patient has correct armband on for positive identification. Bed in low position. Call kj2 light in reach. Provided Education on: call light. 22:03 No provider procedures requiring assistance completed. kj2 22:17 CT Abd/Pelvis - IV Contrast Only In Process Unspecified. EDMS 23:20 US Abdomen Limited In Process Unspecified. EDMS 23:31 Urinalysis w/ reflexes Sent. kj2 11/01 00:05 Wade Trejo MD is Hospitalizing Provider. ec2 00:32 Report given to DESTINI Jarvis. kj2 01:44 Patient admitted, IV remains in place. intact, No redness/swelling at site. rg5 Administered Medications: 10/31 21:51 Drug: TORadol - Ketorolac IVP 15 mg IVP once Route: IVP; Site: left antecubital; kj2 23:32 Follow up: Response: No adverse reaction kj2 21:51 Drug: Ondansetron IVP 4 mg IVP once; over 2 minutes Route: IVP; Site: left antecubital; kj2 23:31 Follow up: Response: No adverse reaction kj2 21:51 Drug: morphine IVP or IV 4 mg IVP once over 4 mins Route: IVP; Infused Over: 4 mins; kj2 Site: left antecubital; 23:32 Follow up: Response: No adverse reaction kj2 21:51 Drug: NS 0.9% IV 1000 ml IV at 1 bolus Per protocol; to be given as a bolus over 60 kj2 minutes Route: IV; Rate: 1 bolus; Site: left antecubital; 11/01 01:08 Follow up: IV Status: Completed infusion; IV Intake: 1000ml rg5 10/31 23:28 Drug: morphine IVP or IV 4 mg IVP once over 4 mins Route: IVP; Infused Over: 4 mins; kj2 Site: left antecubital; 11/01 00:17 Follow up: Response: No adverse reaction kj2 00:57 Drug: Piperacillin-Tazobactam IVPB 3.375 grams IVPB once over 60 mins; (mix in NS 100 rg5 mL) Route: IVPB; Infused Over: 60 mins; Site: left antecubital; 01:30 Follow up: IV Status: Completed infusion; IV Intake: 100ml rg5 Medication: 10/31 21:20 VIS not applicable for this client. kj2 Intake: 11/01 01:08 IV: 1000ml; Total: 1000ml. rg5 01:30 IV: 100ml; Total: 1100ml. rg5 Outcome: 00:05 Decision to Hospitalize by Provider. ec2 01:43 Admitted to Med/surg accompanied by tech, via wheelchair, rg5 01:43 Condition: stable 01:44 Patient left the ED. rg5 Signatures: Dispatcher [employer] Regine Santa jj6 Roman Rosa MD MD ec2 Matheus Raya RN RN rg5 Phylicia Polanco RN RN kj2 Tori St[facility]
--- NOTE | 2024-11-01 00:06 | EDPHYS ---
Physician Documentation [facility] Name: Tanna Phelps Age: 53 yrs Sex: Female : 1970 Arrival Date: 10/31/2024 Time: 21:02 Bed 16 Private MD: ED Physician Roman Rsoa HPI: 10/31 21:37 This 53 yrs old Female presents to ER via Unassigned with complaints of ec2 Possible Kidney Stone, Low Back Pain, Abdominal Pain. 21:37 Patient arrives today for evaluation of left-sided abdominal pain and flank pain. ec2 Patient reports history of kidney stones. Reports urinary frequency as well. Patient reports no hematuria. Reports previous abdominal surgery including appendectomy. Historical: - Allergies: 21:20 Latex; kj2 - PMHx: 21:20 Asthma; High Cholesterol; Hypertension; Kidney stone; Migraines; kj2 - Immunization history:: Adult Immunizations unknown. - Infectious Disease History:: Denies. - Social history:: Smoking status: unknown. ROS: 21:38 Constitutional: as per hpi ec2 Exam: 21:38 Constitutional: GEN: NAD Head: atraumatic Eyes: EOMI Ears: External ears are ec2 normal. CV: regular rate LUNGS: no respiratory distress ABD: non-distended, left-sided abdominal tenderness to palpation SKIN: no evidence of rashes MSK: no evidence of trauma Vital Signs: 21:20 Weight 74.84 kg; Height 5 ft. 0 in. ; kj2 21:25 BP 209 / 100; Pulse 89; Resp 20; Temp 98; Pulse Ox 98% on R/A; kj2 22:30 BP 180 / 87; Pulse 82; Resp 20; Pulse Ox 100% on R/A; kj2 11/01 01:09 BP 115 / 74; Pulse 80; Resp 17; Temp 98; Pulse Ox 97% on R/A; rg5 10/31 21:20 Body Mass Index 32.22 (74.84 kg, 152.4 cm) kj2 MDM: 10/31 21:32 Medical Screening Exam initiated ec2 21:39 Data reviewed: vital signs, nurses notes. ED course: Patient arrives today for ec2 evaluation of left-sided abdominal pain. Examination yields abdominal findings above. Will obtain lab work, urine studies, CT imaging and treat the patient's pain. . 11/01 00:05 ED course: CT imaging shows distended gallbladder with pericholecystic fluid and ec2 gallstones noted. Follow-up ultrasound shows possible gallstones with pericholecystic fluid. CBC is reassuring without leukocytosis, patient with minimal lipase elevation, no pancreatitis on CT imaging, metabolic profile is overall reassuring. Patient with persistent symptoms, will admit for possible cholecystitis, discussed with surgeon and hospitalist who will evaluate and manage the patient.. 00:07 ED course: Of note patient does have lipase elevation. Patient reports that she has ec2 chronically had an elevated lipase and has been followed up outpatient for this.. 10/31 21:35 Order name: CBC with Diff; Complete Time: 22:21 ec2 10/31 21:35 Order name: CMP; Complete Time: 22:21 ec2 10/31 21:35 Order name: Lipase; Complete Time: 22:21 ec2 10/31 21:35 Order name: Urinalysis w/ reflexes; Complete Time: 00:22 ec2 11/01 00:36 Order name: Urinalysis w/ reflexes EDNC 11/01 00:36 Order name: CBC with Automated Diff EDMS 11/01 00:36 Order name: CBC with Automated Diff EDNC 11/01 00:36 Order name: Comprehensive Metabolic Panel EDNC 11/01 00:36 Order name: Comprehensive Metabolic Panel EDNC 10/31 21:35 Order name: CT Abd/Pelvis - IV Contrast Only; Complete Time: 22:52 ec2 10/31 22:52 Order name: US Abdomen Limited; Complete Time: 00:01 ec2 11/01 00:36 Order name: CONS Physician Consult EDNC 10/31 21:35 Order name: IV Saline Lock; Complete Time: 21:35 ec2 10/31 21:35 Order name: Labs collected and sent; Complete Time: 21:35 ec2 11/01 00:05 Order name: NPO; Complete Time: 00:57 ec2 Administered Medications: 10/31 21:51 Drug: TORadol - Ketorolac IVP 15 mg IVP once Route: IVP; Site: left antecubital; kj2 23:32 Follow up: Response: No adverse reaction kj2 21:51 Drug: Ondansetron IVP 4 mg IVP once; over 2 minutes Route: IVP; Site: left antecubital; kj2 23:31 Follow up: Response: No adverse reaction kj2 21:51 Drug: morphine IVP or IV 4 mg IVP once over 4 mins Route: IVP; Infused Over: 4 mins; kj2 Site: left antecubital; 23:32 Follow up: Response: No adverse reaction kj2 21:51 Drug: NS 0.9% IV 1000 ml IV at 1 bolus Per protocol; to be given as a bolus over 60 kj2 minutes Route: IV; Rate: 1 bolus; Site: left antecubital; 11/01 01:08 Follow up: IV Status: Completed infusion; IV Intake: 1000ml rg5 10/31 23:28 Drug: morphine IVP or IV 4 mg IVP once over 4 mins Route: IVP; Infused Over: 4 mins; kj2 Site: left antecubital; 11/01 00:17 Follow up: Response: No adverse reaction kj2 00:57 Drug: Piperacillin-Tazobactam IVPB 3.375 grams IVPB once over 60 mins; (mix in NS 100 rg5 mL) Route: IVPB; Infused Over: 60 mins; Site: left antecubital; 01:30 Follow up: IV Status: Completed infusion; IV Intake: 100ml rg5 Disposition Summary: 11/01/24 00:05 Hospitalization Ordered Notes: Hospitalization Status: Inpatient Admission ec2 Provider: Wade Trejo Location: Telemetry/[facility] (Inpatient) ec2 Condition: Stable ec2 Problem: new ec2 Symptoms: have improved ec2 Bed/Room Type: Standard ec2 Room Assignment: 416(11/01/24 00:42) kb3 Diagnosis - Acute cholecystitis ec2 Forms: - Medication Reconciliation Form ec2 - SBAR form ec2 - Leadership Thank You Letter ec2 Signatures: Dispatcher [employer] Rachelle Goldman RN RN kb3 Roman Rosa MD MD ec2 Matheus Raya RN RN rg5 Phylicia Polanco RN RN kj2 Corrections: (The following items were deleted from the chart) 00:42 00:05 ec2 kb3
[2024-11-01 00:17] LABS: Specific Gravity > 1.030 (1.005-1.030); Sqamous Epithelial None Seen /HPF (None Seen); Urine Bacteria None Seen /HPF (<20); Urine Bilirubin NEGATIVE (Negative); Urine Blood Negative (Negative); Urine Clarity Extremely Turbid (Clear); Urine Color Yellow (Yellow); Urine Crystals Unidentified Few /HPF (None Seen); Urine Culture Reflex Order NOT NEEDED; Urine Glucose NEGATIVE (Negative); Urine Ketones NEGATIVE (Negative); Urine Microscopic Reflex YN ORDER UMIC; Urine Mucus Slight /HPF (None Seen); Urine Nitrite NEGATIVE (Negative); Urine Protein NEGATIVE (Negative); Urine RBC None Seen /HPF (None Seen); Urine Urobilinogen Normal (Normal); Urine WBC <5 /HPF (<5)
--- NOTE | 2024-11-01 00:31 | P.HP ---
Certification for Inpatient Patient admitted to: Inpatient With expected LOS: >2 Midnights Practitioner: I am a practitioner with admitting privileges, knowledge of patient current condition, hospital course, and medical plan of care. Services: Services provided to patient in accordance with Admission requirements found in Title 42 Section 412.3 of the Code of Federal Regulations Patient History Date of Service: 11/01/24 Reason for admission: Abdominal Pain History of Present Illness: 53 yrs old Female with past medical history of hypertension, hyperlipidemia, asthma, GERD, kidney stones and migraine was brought to ER with abdominal pain. Started 2 days ago and has been progressively getting worse. Similar to the kidney stone pain which she had before . Denies any fever or chills. No hematuria. No nausea or vomiting. Previous history of appendectomy. Located in the upper abdomen. Nonradiating. No sick contacts. Patient was assessed in the ER and was found to have acute cholecystitis cholelithiasis and was admitted for further management and surgical consult Allergies adhesive Allergy (Verified 02/05/24 12:03) Itching/Hives/Rash Latex, Natural Rubber Allergy (Verified 02/05/24 11:22) Unknown Home medications list reviewed: Yes Home Medications: Hydrocodone 5/APAP 325 [[place] 5/325*] 1 tab PO Q6H PRN #15 tab 02/05/24 Nitrofurantoin Macrocrystal [Nitrofurantoin] 100 mg PO BID 11/01/24 hydroCHLOROthiazide [Hydrochlorothiazide] 25 mg PO BEDTIME 11/01/24 - Past Medical/Surgical History Past Medical History: Reviewed- Non-Contributory -: Hypertension, hyperlipidemia Past Surgical History: Reviewed- Non-Contributory -: Appendectomy - Family History Family History: Reviewed- Non-Contributory - Social History Smoking Status: Never smoker Review of Systems 10-point ROS is otherwise unremarkable Physical Examination - Vital Signs Temperature: 97.8 F Blood Pressure: 180/98 Pulse: 76 Respirations: 18 Pulse Ox (%): 94 - Physical Exam General: Alert, In no apparent distress, Oriented x3 HEENT: Atraumatic, Normocephalic Neck: Supple Respiratory: Clear to auscultation bilaterally, Normal air movement Cardiovascular: Regular rate/rhythm, Normal S1 S2 Capillary refill: <2 Seconds Gastrointestinal: Soft and benign, Tenderness Musculoskeletal: No clubbing Integumentary: No rashes Neurological: Normal speech, Normal strength at 5/5 x4 extr, Cranial nerves 3-12 intact, Normal reflexes 2+ Lymphatics: No axilla or inguinal lymphadenopathy - Studies Laboratory Data (last 24 hrs) 10/31/24 10/31/24 21:45 21:45 WBC 8.50 Hgb 13.9 Hct 40.6 Plt Count 350 Sodium 140 Potassium 3.7 BUN 21 H Creatinine 0.91 Glucose 105 Total Bilirubin 0.3 AST 28 ALT 22 Alkaline Phosphatase 139 H Lipase 103 H Assessment and Plan - Plan Acute cholecystitis Biliary colic Cholelithiasis Pain control Started on IV antibiotic Surgical consult Will keep n.p.o. for now IV hydration Accelerated Hypertension Antihypertensives titrated Continue home medications and titrate as needed Hydralazine as needed Hyperlipidemia Continue statin GI/DVT prophylaxis Advanced directive full code Discharge Plan: Home Plan to discharge in: 48 Hours - Advance Directives Does patient have a Living Will: No Does patient have a Durable POA for Healthcare: No - Code Status/Comfort Care Code Status: Full Code Time Spent Managing Pts Care (In Minutes): 48
[2024-11-01] MEDS ORDERED: ONDANSETRON 4 MG/2 ML VIAL IV PRN (00:32)
[2024-11-01] MEDS ORDERED: NA CHLORIDE 0.9% 100 ML ONE (00:39)
[2024-11-01] MEDS ORDERED: PIPERACIL/TAZO 3.375 GM VIAL IV ONE (00:40)
[2024-11-01] MEDS: PIPER TAZO 3.375 GM in NA CHLORIDE 0.9% 100 ML IV SCH (01:00)
[2024-11-01] MEDS: NA CHLORIDE 0.9% 1,000 ML IV SCH (02:11)
[2024-11-01] MEDS ORDERED: HYDRALAZINE HCL 20 MG/ML VIAL IV PRN (03:25)
[2024-11-01] MEDS: KETOROLAC 30 MG/ML INJ IV ONE (05:20)
[2024-11-01 07:55] LABS: Anion Gap 5.6 mEq/L (5.0-15.0); Magnesium 2.2 mg/dL (1.6-2.4); Phosphorus 3.7 mg/dL (2.5-4.9); Potassium 3.6 mEq/L (3.5-5.1)
[2024-11-01] MEDS: MORPHINE 2 MG/ML SYR IV PRN (07:59)
--- NOTE | 2024-11-01 11:06 | PREOPCON ---
Date of Consultation: 11/01/2024 Reason: Abdominal pain. History Of Present Illness: The patient is a 53-year-old female presents to the emergency room with approximately 2-day history of abdominal pain in the epigastric and right upper quadrant region associated with nausea, vomiting previously and bloating, belching, and heartburn postprandial in nature. The patient denies any diarrhea or constipation, blood in her stool. No dysuria or hematuria. No sore throat, runny nose, cough, headaches, or dizziness. No chest pain. No fever or chills. The patient was seen at another facility and then her pain improved and she came back and was found to have acute cholecystitis and cholelithiasis. Review of Systems: Otherwise unremarkable. Past Medical History: Hypertension, hyperlipidemia, asthma, GERD, kidney stones. Past Surgical History: Significant for appendectomy, hysterectomy. Allergies: REVIEWED AND INCLUDE LATEX. SHE DOES NOT SMOKE. DRINKS OCCASIONALLY. Family History: Noncontributory. Physical Examination: Vital Signs: Stable. She is afebrile. General: She is awake, alert, oriented x3. Head and Neck: No neck masses. No JVD. Throat clear. Neck is supple. Chest: Clear, Heart: S1, S2. Abdomen: Soft, nondistended. Positive bowel sounds. Positive right upper quadrant tenderness. No rebound, rigidity, or guarding. Extremities: Adequately perfused. Nontender. Neuro: Nonfocal. Laboratory Data: Shows a white count of 8.5. Chemistry reviewed. Her AST, ALT, total bilirubin are within normal limits. Alkaline phosphatase is 139. Lipase is 103. She chronically runs slightly high lipase, however, and abdomen and pelvis CT shows distended gallbladder with mild pericholecystic fluid, small gallstones and ultrasound shows cholelithiasis with small amount of pericholecystic fluid somewhat equivocal for acute cholecystitis. Assessment: Acute cholecystitis and cholelithiasis. Plan: Admit, n.p.o., IV fluids, IV antibiotics, to the OR for laparoscopic cholecystectomy, possible open. The patient understands risks, benefits, alternatives and agrees to procedure. /MODL Voice ID: [id number] Report ID: [id number] LIDIA
[2024-11-01] MEDS: Ringers Lactate 1,000 ML IV ONE (12:00)
[2024-11-01] MEDS: CEFOXITIN SODIUM 1 GM/VIAL ONE (12:47)
[2024-11-01] MEDS ORDERED: SUCCINYLCHOLINE 20 MG/ML (10 ML) IV ONE (12:49)
[2024-11-01] MEDS ORDERED: MIDAZOLAM HCL 2 MG/2 ML INJ ONE (12:49)
[2024-11-01] MEDS ORDERED: FENTANYL CITR 100 MCG/2 ML ONE (12:49)
[2024-11-01] MEDS ORDERED: ROCURONIUM 50 MG/5 ML VIAL IV ONE (12:49)
[2024-11-01] MEDS ORDERED: propofoL 200 MG/20 ML VIAL IV ONE (12:49)
[2024-11-01] MEDS ORDERED: LABETALOL 20 MG/4ML SYRINGE IV ONE (13:23)
[2024-11-01] MEDS ORDERED: GLYCOPYRROLATE 0.2 MG/ML SYR ONE (13:42)
[2024-11-01] MEDS ORDERED: NEOSTIGMINE 1 MG/ML -10 ML VIAL ONE (13:42)
[2024-11-01] MEDS ORDERED: ONDANSETRON 4 MG/2 ML VIAL ONE (13:48)
[2024-11-01] MEDS ORDERED: dexAMETHasone 4 MG/ML VIAL ONE (13:49)
--- NOTE | 2024-11-01 13:51 | P.PN ---
Date of Service: 11/01/24 Subjective: Abdominal pain improved Denies nausea/vomiting overnight ROS: 10 point ROS as noted above, otherwise negative Physical exam GEN: Alert, oriented, NAD HEENT: Normal conjunctiva, sclera anicteric CV: Regular rate and rhythm, no edema Pulm: Nonlabored respirations on room air ABD: Soft, mild generalized abdominal tenderness, nondistended MSK: No joint tenderness Integumentary: No rashes Neuro: Normal speech, normal affect Vitals reviewed Problem List Acute cholecystitis Biliary colic Cholelithiasis Plan for laparoscopic cholecystectomy today Continue antibiotics/as needed pain medications General Surgery following/managing Accelerated Hypertension Antihypertensives titrated Continue home medications and titrate as needed Hydralazine as needed Hyperlipidemia Continue statin VTE: SCD Code: Full Dispo: 1 to 2 days Time Spent Managing Pts Care (In Minutes): 35
--- NOTE | 2024-11-01 13:57 | P.OP ---
Date of Service: 11/01/24 Preop diagnosis: Acute cholecystitis and cholelithiasis Postop diagnosis: Same with adhesions Procedure performed: Laparoscopic cholecystectomy, lysis of adhesions Surgeon: Sina Monroe MD Caddy: Kelly DOUGLASS Estimated blood loss: Minimal Specimen: Gallbladder Findings: As above Anesthesia: General Complications: None Drains: None Fluids and blood products: Nonapplicable Disposition: Recovery room Operative note: Patient brought to the OR and placed in the supine position. General anesthesia began. Patient prepped and draped in usual sterile fashion. Marcaine 0.5% infiltrated locally. 15 blade used to make a 1 cm infraumbilical midline incision. Subcutaneous tissue divided and bleeding controlled with cautery. Fascia identified and divided. #1 Vicryl stay suture placed. Peritoneal cavity entered with sharp and blunt dissection. 12 mm trocar placed into the peritoneal cavity under direct vision. Pneumoperitoneum established. Three 5 mm trocar placed under direct vision. 1 trocar placed in the epigastric region just to the right of midline and 2 trocars placed in the right subcostal region. Laparoscopy revealed extensive adhesions to the gallbladder. LigaSure was utilized for approximately 15 minutes to take down all of the adhesions. Fundus identified and retracted superiorly and inferiorly identified and retracted inferolaterally. Cystic duct and cystic artery clearly identified with blunt dissection. Clips placed and both structures divided. Cautery used to remove the gallbladder from the liver bed. Bleeding on the liver bed controlled with cautery. Gallbladder retrieved through the umbilicus via Endo Catch bag. Right upper quadrant irrigated. No evidence of bleeding or bile leakage appreciated. Effluent was clear. All trocars removed under direct vision. Stay sutures tied to each other to reapproximate the fascial defect. Subcutaneous wounds irrigated and bleeding controlled with cautery. 3-0 chromic used to approximate subcutaneous tissue and close skin. Sterile dressing applied. Patient awakened and taken to recovery room in good general condition. CC:
[2024-11-01] MEDS ORDERED: HYDROMORPHONE HCL 1 MG/ML INJ IV PRN (14:00)
[2024-11-01] MEDS: HYDROMORPHONE HCL 0.5 MG/0.5 ML INJ ONE (14:29)
[2024-11-01] MEDS: KETOROLAC 30 MG/ML INJ ONE (14:29)
[2024-11-01] MEDS: HYDROCODONE/APAP 7.5/325 MG TAB PO PRN (15:35)
[2024-11-01] MEDS: KCL 20 MEQ/100 mL IVPB 20 MEQ/100 ML BAG IV SCH (16:05)
[2024-11-01] MEDS: ACETAMIN/CAFFEINE/BUTALB TAB PO ONE (21:35)
[2024-11-02 06:38] VITALS: BMI 30.2
[2024-11-02 07:59] LABS: Absolute Lymphocytes (CBC) 1.1 K/uL (0.7-4.9); Absolute Monocytes 0.4 K/uL (0.1-1.3); Absolute Neutrophil 7.7 K/uL (1.8-8.0); Basophils % 0.3 % (0-1.3); Eosinophils % 0.1 % (0-4.4); Lymphocytes % 11.9 % (15.3-44.8); MCH 31.9 pg (27.0-35.0); MCHC 34.3 g/dL (32.0-36.0); MCV 93.1 fL (80-100); MPV 7.3 fL (7.6-11.3); Monocytes % 4.8 % (3.3-12.3); Neutrophils % 82.9 % (41.7-73.7); Platelets 293 thou/uL (152-406); RBC Red Blood Cell Count 3.43 M/uL (3.86-4.86); Red Cell Distribution Width 14.3 % (12.1-15.2)
[2024-11-02 08:10] LABS: Anion Gap 8.2 mEq/L (5.0-15.0); Magnesium 2.1 mg/dL (1.6-2.4); Phosphorus 3.1 mg/dL (2.5-4.9); Potassium 4.2 mEq/L (3.5-5.1)
[2024-11-02 08:56] VITALS: BP 117/70; TEMP 98
[2024-11-02] MEDS: hydroCHLOROthiazide 25 MG TAB PO ONE (09:19)
[2024-11-02 10:15] VITALS: O2SAT 96
--- NOTE | 2024-11-02 10:16 | P.DS ---
Admission Date: 11/01/24 Discharge Date: 11/02/24 Disposition: ROUTINE DISCHARGE Discharge Condition: GOOD Reason for Admission: Abdominal Pain Brief History of Present Illness: 53 yrs old Female with past medical history of hypertension, hyperlipidemia, asthma, GERD, kidney stones and migraine was brought to ER with abdominal pain. Started 2 days ago and has been progressively getting worse. Similar to the kidney stone pain which she had before . Denies any fever or chills. No hematuria. No nausea or vomiting. Previous history of appendectomy. Located in the upper abdomen. Nonradiating. No sick contacts. Patient was assessed in the ER and was found to have acute cholecystitis cholelithiasis and was admitted for further management and surgical consult Hospital Course: Problem List Acute cholecystitis Biliary colic Cholelithiasis Accelerated Hypertension Hyperlipidemia Patient was admitted for acute cholecystitis, she underwent laparoscopic cholecystectomy on 11/01/2024 and has been doing well postoperatively. She is stable for discharge outpatient follow-up with her primary care doctor and general surgery. Prescription for antibiotics and pain medication sent to her pharmacy [facility] in [place]. Instructions from the surgeon below: May shower in a.m. After shower, remove outer dressing Keep Steri-Strips on at all times Incentive spirometry as instructed Resume home meds and diet Activity as tolerated, no heavy lifting or strenuous exercise Follow-up my office 1 week, call for appointment Vital Signs/Physical Exam: Temp Pulse Resp BP Pulse Ox 98 F 86 17 117/70 96 11/02/24 08:00 11/02/24 09:19 11/02/24 09:19 11/02/24 09:19 11/02/24 09:19 General: Alert, In no apparent distress, Oriented x3 HEENT: Atraumatic, PERRLA Neck: Supple, JVD not distended Respiratory: Clear to auscultation bilaterally, Normal air movement Cardiovascular: Regular rate/rhythm, Normal S1 S2 Gastrointestinal: Normal bowel sounds, No tenderness Musculoskeletal: No tenderness Integumentary: No rashes Neurological: Normal speech, Normal affect Laboratory Data at Discharge: WBC 9.30 thou/uL (4.3-10.9) 11/02/24 07:46 Hgb 11.0 g/dL (12.0-15.0) L 11/02/24 07:46 Hct 32.0 % (36.0-45.0) L 11/02/24 07:46 Plt Count 293 thou/uL (152-406) 11/02/24 07:46 Sodium 141 mEq/L (136-145) 11/02/24 07:46 Potassium 4.2 mEq/L (3.5-5.1) D 11/02/24 07:46 BUN 12 mg/dL (7-18) 11/02/24 07:46 Creatinine 0.75 mg/dL (0.55-1.02) 11/02/24 07:46 Glucose 106 mg/dL (74-106) 11/02/24 07:46 Phosphorus 3.1 mg/dL (2.5-4.9) 11/02/24 07:46 Magnesium 2.1 mg/dL (1.6-2.4) 11/02/24 07:46 Total Bilirubin 0.3 mg/dL (0.2-1.0) 10/31/24 21:45 AST 28 U/L (15-37) 10/31/24 21:45 ALT 22 U/L (13-56) 10/31/24 21:45 Alkaline Phosphatase 139 U/L (45-117) H 10/31/24 21:45 Lipase 103 U/L (13-75) H 10/31/24 21:45 Home Medications: Hydrocodone 5/APAP 325 [[place] 5/325*] 1 tab PO Q6H PRN #15 tab 02/05/24 hydroCHLOROthiazide [Hydrochlorothiazide] 25 mg PO BEDTIME 11/01/24 Amox/Clavulanate [Augmentin 875-125 Tab] 875 mg PO BID 7 Days #14 tab 11/02/24 Hydrocodone 7.5/APAP 325 [Felt 7.5/325 mg*] 1 tab PO Q6H PRN #15 tab 11/02/24 New Medications: Amox/Clavulanate [Augmentin 875-125 Tab] 875 mg PO BID 7 Days #14 tab Hydrocodone 7.5/APAP 325 [Felt 7.5/325 mg*] 1 tab PO Q6H PRN #15 tab PRN Reason: Pain Scale 5-7 (Moderate) Physician Discharge Instructions: Patient was admitted for acute cholecystitis, she underwent laparoscopic cholecy stectomy on 11/01/2024 and has been doing well postoperatively. She is stable for discharge outpatient follow-up with her primary care doctor and general surgery. Prescription for antibiotics and pain medication sent to her pharmacy [facility] in [place]. Instructions from the surgeon below: May shower in a.m. After shower, remove outer dressing Keep Steri-Strips on at all times Incentive spirometry as instructed Resume home meds and diet Activity as tolerated, no heavy lifting or strenuous exercise Follow-up my office 1 week, call for appointment Diet: AHA Activity: No lifting more than 10 lbs Followup: Sina Monroe MD [ACTIVE - CAN ADMIT] - 1 Week Chris Rob RN [Primary Care Provider] - 1-2 Weeks Time spent managing pt's care (in minutes): 38
--- NOTE | 2024-11-02 11:07 | PN ---
Date of Progress Note: 11/02/2024 Subjective: The patient is awake, alert. No complaints. Tolerating diet. Pain is well controlled. Objective: Vital Signs: Stable. Afebrile. Abdomen: Benign. Dressing clean, dry, and intact Laboratory Data: Reviewed. Assessment: Status post laparoscopic cholecystectomy and lysis of adhesions. Recommendation: The patient cleared from surgery point of view for discharge. Follow up in my offic e in 1 week. Discharge instructions given. Antibiotics and pain medicine per the hospitalist team. /MODL Voice ID: [id number] Report ID: [id number]
== END 2024-11-02 11:55 | disposition home or self-care (01) | DRG 419 ==
LOC: ER 21:02 → ERHOLD 11-01 00:32 → 4TH 11-01 01:15
PROVIDERS: ADMIT Family Medicine; ATTEND Hospitalist
PROC: 0FT44ZZ Resection of Gallbladder, Percutaneous Endoscopic Approach (ICD-10-PCS; principal; 2024-11-01 12:05)
DX: K80.00 Calculus of gallbladder with acute cholecystitis without obstruction (principal); E78.00 Pure hypercholesterolemia, unspecified; I10 Essential (primary) hypertension; J45.909 Unspecified asthma, uncomplicated; K21.9 Gastro-esophageal reflux disease without esophagitis; K66.0 Peritoneal adhesions (postprocedural) (postinfection); R35.0 Frequency of micturition; Z90.49 Acquired absence of other specified parts of digestive tract; Z91.040 Latex allergy status; Z91.048 Other nonmedicinal substance allergy status; Z79.899 Other long term (current) drug therapy; Z90.710 Acquired absence of both cervix and uterus
CPT/HCPCS: 36415; 74177; 76705; 80048; 80053; 81001; 83690; 83735; 84100; 85025; 88304; 94010; 96361; 96365; 96375; 99285; J0694; J1100; J1171; J2250; J2270; J2405; J2543; J2704; J2710; J3010; J3480; J7030; J7120; Q9967